=== PATIENT | male | born 1980 | race Caucasian/White ===

== ENCOUNTER 2017-04-15 12:36 | Emergency (ER) | payer SELFPAY ==
[~2017-04-15] VITALS: Ht 180.3 cm; Wt 95.5 kg
[~2017-04-15 12:36] MED LIST: ALBU8HFA IH; AMLO10TA4 PO; FLUO20CA30 PO; QUET100T PO
[2017-04-15] MEDS ORDERED: LEVE250T55 PO (12:48)
[2017-04-15] MEDS ORDERED: SODIUM CHLORIDE 0.9% 1,000 ML IV ONE (13:15)
[2017-04-15] MEDS ORDERED: MAG HYDROX/AL HYDROX/SIMETH ES 30 ML SUSPENSION UDCUP PO ONE (13:30)
[2017-04-15] MEDS ORDERED: FAMOTIDINE 20 MG TABLET PO ONE (13:30)
[2017-04-15 13:48] LABS: BASOPHILS # (AUTO) 0.07 K/uL (0.00-0.20); BASOPHILS % (AUTO) 1.6 % (0.0-2.0); EOSINOPHILS # (AUTO) 0.22 K/uL (0.00-0.70); EOSINOPHILS % (AUTO) 5.15 % (1.0-6.0); HEMATOCRIT 39.1 % (41-53); HEMOGLOBIN 13.6 g/dL (13.5-17.5); LYMPHOCYTES # (AUTO) 1.4 K/uL (1.0-4.8); LYMPHOCYTES % (AUTO) 31.3 % (22.0-44.0); MEAN CORPUSCULAR HGB CONC 34.8 G/dL (31.0-37.0); MEAN CORPUSCULAR VOLUME 92 fL (80-100); MONOCYTES # (AUTO) 0.4 K/uL (0.1-1.0); MONOCYTES % (AUTO) 8.8 % (2.0-9.0); NEUTROPHILS # (AUTO) 2.3 K/uL (1.8-7.7); NEUTROPHILS % (AUTO) 53.1 % (40.0-70.0); PLATELET COUNT (AUTO) 186 K/uL (150-450); RED BLOOD CELL COUNT(AUTO) 4.25 MIL/uL (4.50-5.90); RED CELL DISTRIBUTION WIDTH 14.7 % (11.5-14.5); WHITE BLOOD COUNT (AUTO) 4.3 K/uL (4.5-11.0)
[2017-04-15 13:55] VITALS: BP 113/60
[2017-04-15 13:57] LABS: ANION GAP 10 mmol/L (8-16); CALCIUM, TOTAL 8.7 mg/dL (8.8-10.5); CARBON DIOXIDE 27 mmol/L (22-29); CHLORIDE 108 mmol/L (98-107); CREATININE 0.93 mg/dL (0.60-1.30); GLOMERULAR FILTR. RATE CALC > 60 mL/min (>60); POTASSIUM 3.9 mmol/L (3.5-5.1); SODIUM SERUM 145 mmol/L (136-145); UREA NITROGEN, BLOOD 8 mg/dL (7-18)
[2017-04-15 14:04] LABS: ALANINE AMINOTRANSFERASE 23 U/L (12-78); ALBUMIN 3.7 g/dL (3.4-5.0); ASPARTATE AMINOTRANSFERASE 19 U/L (15-37); BILIRUBIN,TOTAL 0.8 mg/dL (0.1-1.0); TOTAL PROTEIN, SERUM 6.6 g/dL (6.4-8.2)
[2017-04-20] MEDS ORDERED: NAPR250T2 PO (20:13)
== END 2017-04-15 14:48 | disposition home or self-care (01) ==
LOC: EMS 12:38
DX: K29.20 Alcoholic gastritis without bleeding (principal); J45.909 Unspecified asthma, uncomplicated
CPT/HCPCS: 36415; 80053; 83690; 85025; 96360; 96361; 99285; G0480; J7030

== ENCOUNTER 2017-04-20 19:55 | Emergency (ER) | payer MEDICAID ==
[~2017-04-20] VITALS: Ht 180.3 cm; Wt 100.0 kg
[~2017-04-20 19:55] MED LIST changes: +LEVE250T55 PO
[2017-04-20] MEDS ORDERED: NAPR-923 PO (20:13)
[2017-04-20] MEDS ORDERED: LEVE250T55 PO (20:14)
[2017-04-20] MEDS ORDERED: SODIUM CHLORIDE 0.9% 1,000 ML IV ONE (20:15)
[2017-04-20] MEDS ORDERED: NAPR-58 PO (20:19)
[2017-04-20 20:31] LABS: BASOPHILS % (AUTO) 0.8 % (0.0-2.0); EOSINOPHILS % (AUTO) 1.4 % (1.0-6.0); HEMATOCRIT 48.6 % (41-53); HEMOGLOBIN 16.6 g/dL (13.5-17.5); LYMPHOCYTES # (AUTO) 1.4 K/uL (1.0-4.8); LYMPHOCYTES % (AUTO) 17.5 % (22.0-44.0); MEAN CORPUSCULAR HEMOGLOBIN 32.2 pg (26.0-34.0); MEAN CORPUSCULAR HGB CONC 34.2 G/dL (31.0-37.0); MEAN CORPUSCULAR VOLUME 94 fL (80-100); MONOCYTES # (AUTO) 0.6 K/uL (0.1-1.0); NEUTROPHILS # (AUTO) 5.8 K/uL (1.8-7.7); NEUTROPHILS % (AUTO) 73.3 % (40.0-70.0); PLATELET COUNT (AUTO) 241 K/uL (150-450); RED BLOOD CELL COUNT(AUTO) 5.16 MIL/uL (4.50-5.90); RED CELL DISTRIBUTION WIDTH 14.3 % (11.5-14.5); WHITE BLOOD COUNT (AUTO) 7.9 K/uL (4.5-11.0)
[2017-04-20 20:43] LABS: ANION GAP 13 mmol/L (8-16); CALCIUM, TOTAL 9.2 mg/dL (8.8-10.5); CARBON DIOXIDE 27 mmol/L (22-29); CHLORIDE 102 mmol/L (98-107); CREATININE 1.21 mg/dL (0.60-1.30); GLOMERULAR FILTR. RATE CALC > 60 mL/min (>60); POTASSIUM 4.5 mmol/L (3.5-5.1); SODIUM SERUM 142 mmol/L (136-145); UREA NITROGEN, BLOOD 14 mg/dL (7-18)
[2017-04-20] MEDS ORDERED: LORazepam 2 MG/ML VIAL IVP ONE (20:45)
[2017-04-20] MEDS ORDERED: BENZTROPINE MESYLATE 1 MG/ML 2 ML AMP IVP ONE (20:45)
[2017-04-20 20:49] LABS: ALANINE AMINOTRANSFERASE 36 U/L (12-78); ALBUMIN 4.7 g/dL (3.4-5.0); ASPARTATE AMINOTRANSFERASE 33 U/L (15-37); BILIRUBIN,TOTAL 0.5 mg/dL (0.1-1.0); TOTAL PROTEIN, SERUM 8.4 g/dL (6.4-8.2)
[2017-04-20 20:50] LABS: ACETAMINOPHEN < 2 mcg/mL (10-30)
[2017-04-20 21:13] LABS: SALICYLATE 2.7 mg/dL (2.8-20.0)
[2017-04-20 23:41] LABS: AMMONIA 25 umol/L (11-32)
[2017-04-20 23:51] LABS: TROPONIN I < 0.02 ng/mL (0.00-0.05)
[2017-04-21 00:04] LABS: VALPROIC ACID < 3 mcg/mL (50-100)
[2017-04-21] MEDS ORDERED: ONDANSETRON HCL 4 MG/2 ML VIAL IVP ONE (00:45)
[2017-04-21] MEDS ORDERED: SODIUM CHLORIDE 0.9% 1,000 ML IV ONE ×2 (01:00→01:15)
[2017-04-21 06:12] VITALS: BP 139/93
== END 2017-04-21 06:21 | disposition home or self-care (01) ==
LOC: EMS 19:58
DX: R41.82 Altered mental status, unspecified (principal); J45.909 Unspecified asthma, uncomplicated; K85.90 Acute pancreatitis without necrosis or infection, unspecified
CPT/HCPCS: 36415; 51702; 70450; 80053; 80164; 80307; 82140; 83690; 84484; 85025; 93005; 96361; 96374; 96375; 99285; G0480; G0482; J0515; J2060; J2405; J7030 ×2; G0481

== ENCOUNTER 2017-08-12 07:47 | Emergency (ER) | payer MEDICAID, OTHER ==
[~2017-08-12] VITALS: Ht 180.3 cm; Wt 90.9 kg
[~2017-08-12 07:47] MED LIST changes: +NAPR-58 PO
[2017-08-12] MEDS ORDERED: DIPH25 PO (08:00)
[2017-08-12] MEDS ORDERED: SODIUM CHLORIDE 0.9% 1,000 ML IV ONE (10:15)
[2017-08-12] MEDS ORDERED: KETOROLAC TROMETHAMINE 30 MG/ML VIAL IVP ONE (10:30)
[2017-08-12 10:55] LABS: BASOPHILS % (AUTO) 0.5 % (0.0-2.0); EOSINOPHILS % (AUTO) 1.8 % (1.0-6.0); HEMATOCRIT 42.9 % (41-53); HEMOGLOBIN 14.9 g/dL (13.5-17.5); LYMPHOCYTES # (AUTO) 1.4 K/uL (1.0-4.8); LYMPHOCYTES % (AUTO) 13.7 % (22.0-44.0); MEAN CORPUSCULAR HEMOGLOBIN 32.2 pg (26.0-34.0); MEAN CORPUSCULAR HGB CONC 34.8 G/dL (31.0-37.0); MEAN CORPUSCULAR VOLUME 93 fL (80-100); MONOCYTES # (AUTO) 0.5 K/uL (0.1-1.0); NEUTROPHILS # (AUTO) 8.3 K/uL (1.8-7.7); PLATELET COUNT (AUTO) 305 K/uL (150-450); RED BLOOD CELL COUNT(AUTO) 4.64 MIL/uL (4.50-5.90); RED CELL DISTRIBUTION WIDTH 13.6 % (11.5-14.5)
[2017-08-12 11:25] LABS: ANION GAP 12 mmol/L (8-16); CALCIUM, TOTAL 9.3 mg/dL (8.8-10.5); CARBON DIOXIDE 24 mmol/L (22-29); CHLORIDE 103 mmol/L (98-107); CREATININE 1.01 mg/dL (0.60-1.30); GLOMERULAR FILTR. RATE CALC > 60 mL/min (>60); GLUCOSE,RANDOM 116 mg/dL (70-110); SODIUM SERUM 139 mmol/L (136-145); UREA NITROGEN, BLOOD 8 mg/dL (7-18)
[2017-08-12 11:50] LABS: AMPHET/METH SCREEN,URINE NEGATIVE (NEGATIVE); BARBITURATE SCREEN, URINE NEGATIVE (NEGATIVE); BENZODIAZEPINES SCREEN,URINE NEGATIVE (NEGATIVE); CANNABINOID SCREEN,URINE NEGATIVE (NEGATIVE); COCAINE SCREEN,URINE NEGATIVE (NEGATIVE); METHADONE SCREEN, URINE NEGATIVE (NEGATIVE); OPIATE SCREEN,URINE NEGATIVE (NEGATIVE)
[2017-08-12 11:51] LABS: PHENCYCLIDINE SCREEN,URINE NEGATIVE (NEGATIVE)
[2017-08-12 11:59] LABS: CREATINE KINASE MB 0.6 ng/mL (0-5); CREATINE KINASE, TOTAL 117 U/L (39-308); THYROID STIMULATING HORMONE 1.14 uIU/mL (0.36-3.74)
[2017-08-12] MEDS ORDERED: LORazepam 1 MG TABLET PO ONE (12:30)
[2017-08-12] MEDS ORDERED: OxyCODONE HCL/ACETAMINOPHEN 5-325 MG TABLET PO ONE (13:15)
[2017-08-12] MEDS ORDERED: LevETIRAcetam 500 MG TABLET PO ONE (13:15)
[2017-08-12 13:30] VITALS: BP 125/67
[2017-08-12] MEDS ORDERED: BARIUM SULFATE 0.1% SUSPENSION 450 ML BOTTLE PO ONE (14:15)
== END 2017-08-12 14:12 | disposition home or self-care (01) ==
LOC: EMS 07:49
DX: G40.909 Epilepsy, unspecified, not intractable, without status epilepticus (principal); F41.9 Anxiety disorder, unspecified; J45.909 Unspecified asthma, uncomplicated
CPT/HCPCS: 36415; 80048; 80307; 82550; 82553; 84443; 85025; 96374; 99284; J1885; J7030

== ENCOUNTER 2017-08-13 14:13 | Emergency (ER) | payer OTHER ==
[~2017-08-13] VITALS: Ht 180.3 cm; Wt 90.5 kg
[~2017-08-13 14:13] MED LIST changes: +DIPH25 PO
[2017-08-13 14:42] LABS: GLUCOSE,POINT OF CARE 124 MG/DL (70-110)
[2017-08-13 15:32] LABS: BASOPHILS % (AUTO) 0.7 % (0.0-2.0); EOSINOPHILS % (AUTO) 5.5 % (1.0-6.0); HEMATOCRIT 40.9 % (41-53); HEMOGLOBIN 14.3 g/dL (13.5-17.5); LYMPHOCYTES # (AUTO) 1.9 K/uL (1.0-4.8); LYMPHOCYTES % (AUTO) 21.2 % (22.0-44.0); MEAN CORPUSCULAR HEMOGLOBIN 31.6 pg (26.0-34.0); MEAN CORPUSCULAR HGB CONC 34.8 G/dL (31.0-37.0); MEAN CORPUSCULAR VOLUME 91 fL (80-100); MONOCYTES # (AUTO) 0.6 K/uL (0.1-1.0); MONOCYTES % (AUTO) 6.6 % (2.0-9.0); NEUTROPHILS # (AUTO) 5.8 K/uL (1.8-7.7); PLATELET COUNT (AUTO) 339 K/uL (150-450); RED BLOOD CELL COUNT(AUTO) 4.51 MIL/uL (4.50-5.90); RED CELL DISTRIBUTION WIDTH 13.6 % (11.5-14.5)
[2017-08-13 15:46] LABS: ANION GAP 13 mmol/L (8-16); CALCIUM, TOTAL 9.7 mg/dL (8.8-10.5); CARBON DIOXIDE 26 mmol/L (22-29); CHLORIDE 99 mmol/L (98-107); CREATININE 0.92 mg/dL (0.60-1.30); GLOMERULAR FILTR. RATE CALC > 60 mL/min (>60); GLUCOSE,RANDOM 103 mg/dL (70-110); POTASSIUM 3.4 mmol/L (3.5-5.1); SODIUM SERUM 138 mmol/L (136-145); UREA NITROGEN, BLOOD 6 mg/dL (7-18)
[2017-08-13 15:51] LABS: ALANINE AMINOTRANSFERASE 33 U/L (12-78); ALBUMIN 3.9 g/dL (3.4-5.0); ALKALINE PHOSPHATASE 84 U/L (46-116); ASPARTATE AMINOTRANSFERASE 18 U/L (15-37); BILIRUBIN,TOTAL 0.3 mg/dL (0.1-1.0); TOTAL PROTEIN, SERUM 7.9 g/dL (6.4-8.2)
[2017-08-13] MEDS ORDERED: PHENYTOIN SODIUM 1,000 MG in SODIUM CHLORIDE 0.9% 150 ML IV ONE (16:45)
[2017-08-13] MEDS ORDERED: LORazepam 1 MG TABLET PO ONE (16:45)
[2017-08-13] MEDS ORDERED: ONDANSETRON HCL 4 MG/2 ML VIAL IVP ONE (19:00)
[2017-08-13] MEDS ORDERED: SODIUM CHLORIDE 0.9% 1,000 ML IV ONE (19:00)
[2017-08-13] MEDS ORDERED: IBUPROFEN 600 MG TABLET PO ONE (19:30)
[2017-08-13 19:36] VITALS: BP 131/85
== END 2017-08-13 19:38 | disposition home or self-care (01) ==
LOC: EMS 14:17
DX: G40.909 Epilepsy, unspecified, not intractable, without status epilepticus (principal); J45.909 Unspecified asthma, uncomplicated; F17.200 Nicotine dependence, unspecified, uncomplicated
CPT/HCPCS: 36415; 80053; 82962; 85025; 96361; 96365; 96375; 99284; 99406; G0480; G0482; J1165; J2405; J7030; J7050

== ENCOUNTER 2017-08-22 19:06 | Emergency (ER) | payer OTHER ==
[~2017-08-22] VITALS: Ht 180.3 cm; Wt 95.5 kg
[~2017-08-22 19:06] MED LIST changes: -NAPR-58 PO
[2017-08-22] MEDS ORDERED: ACET1TAB12 PO (19:29)
[2017-08-22 20:13] LABS: BASOPHILS # (AUTO) 0.04 K/uL (0.00-0.20); BASOPHILS % (AUTO) 0.6 % (0.0-2.0); EOSINOPHILS # (AUTO) 0.35 K/uL (0.00-0.70); EOSINOPHILS % (AUTO) 5.29 % (1.0-6.0); HEMATOCRIT 42.3 % (41-53); HEMOGLOBIN 14.1 g/dL (13.5-17.5); LYMPHOCYTES # (AUTO) 2.3 K/uL (1.0-4.8); LYMPHOCYTES % (AUTO) 35.3 % (22.0-44.0); MEAN CORPUSCULAR HEMOGLOBIN 31.4 pg (26.0-34.0); MEAN CORPUSCULAR HGB CONC 33.3 G/dL (31.0-37.0); MEAN CORPUSCULAR VOLUME 94 fL (80-100); MONOCYTES # (AUTO) 0.7 K/uL (0.1-1.0); MONOCYTES % (AUTO) 10.3 % (2.0-9.0); NEUTROPHILS # (AUTO) 3.2 K/uL (1.8-7.7); NEUTROPHILS % (AUTO) 48.5 % (40.0-70.0); PLATELET COUNT (AUTO) 281 K/uL (150-450); RED BLOOD CELL COUNT(AUTO) 4.48 MIL/uL (4.50-5.90); RED CELL DISTRIBUTION WIDTH 14.1 % (11.5-14.5)
[2017-08-22 20:23] LABS: ANION GAP 7 mmol/L (8-16); CALCIUM, TOTAL 8.9 mg/dL (8.8-10.5); CARBON DIOXIDE 27 mmol/L (22-29); CHLORIDE 103 mmol/L (98-107); CREATININE 1.23 mg/dL (0.60-1.30); GLOMERULAR FILTR. RATE CALC > 60 mL/min (>60); GLUCOSE,RANDOM 103 mg/dL (70-110); POTASSIUM 3.8 mmol/L (3.5-5.1); SODIUM SERUM 137 mmol/L (136-145); UREA NITROGEN, BLOOD 12 mg/dL (7-18)
[2017-08-22 20:29] LABS: ALANINE AMINOTRANSFERASE 38 U/L (12-78); ALBUMIN 3.6 g/dL (3.4-5.0); ALKALINE PHOSPHATASE 79 U/L (46-116); ASPARTATE AMINOTRANSFERASE 23 U/L (15-37); BILIRUBIN,TOTAL 0.2 mg/dL (0.1-1.0); LIPASE 108 U/L (73-393); TOTAL PROTEIN, SERUM 7.3 g/dL (6.4-8.2)
[2017-08-22] MEDS ORDERED: LORazepam 2 MG TABLET PO ONE (21:30)
[2017-08-22] MEDS ORDERED: ACETAMINOPHEN/CODEINE 300-30 MG TABLET PO ONE (21:30)
[2017-08-22] MEDS ORDERED: LevETIRAcetam 500 MG TABLET PO ONE (21:30)
[2017-08-22] MEDS ORDERED: CEPHALEXIN MONOHYDRATE 500 MG CAPSULE PO ONE (21:45)
[2017-08-22 21:48] LABS: APPEARANCE,URINE CLEAR (CLEAR); BILIRUBIN,URINE NEGATIVE (NEGATIVE); GLUCOSE, URINE (UA) NEGATIVE (NEGATIVE); KETONES,URINE NEGATIVE (NEGATIVE); LEUKOCYTE ESTERASE ,URINE NEGATIVE (NEGATIVE); NITRATE,URINE NEGATIVE (NEGATIVE); OCCULT BLOOD,URINE NEGATIVE (NEGATIVE); PROTEIN,URINE NEGATIVE (NEGATIVE); UROBILINOGEN,URINE 0.2 mg/dL (<=1.0)
[2017-08-22 21:55] LABS: BACTERIA,URINE Rare /HPF (None Seen); RBC,URINE None Seen /HPF (0-2); SQUAMOUS EPITHELIAL CELL,UR Rare /LPF (None Seen); WBC,URINE 0-2 /HPF (0-5)
[2017-08-22] MEDS ORDERED: ONDANSETRON HCL 4 MG TABLET PO ONE (22:30)
[2017-08-22] MEDS ORDERED: QUEtiapine FUMARATE 100 MG TABLET PO ONE (22:30)
[2017-08-22 22:37] VITALS: BP 138/87
== END 2017-08-22 22:38 | disposition home or self-care (01) ==
LOC: EMS 19:07
DX: R10.13 Epigastric pain (principal); M25.512 Pain in left shoulder; L03.012 Cellulitis of left finger; G40.909 Epilepsy, unspecified, not intractable, without status epilepticus; F41.9 Anxiety disorder, unspecified; J45.909 Unspecified asthma, uncomplicated; I10 Essential (primary) hypertension; Z79.899 Other long term (current) drug therapy; Z71.6 Tobacco abuse counseling
CPT/HCPCS: 36415; 80053; 81001; 83690; 85025; 99284; 99406; G0480; Q0162

== ENCOUNTER 2017-08-24 16:29 | Emergency (ER) | payer OTHER ==
[~2017-08-24] VITALS: Ht 180.3 cm; Wt 95.0 kg
[~2017-08-24 16:29] MED LIST changes: +ACET1TAB12 PO; -AMLO10TA4 PO; -DIPH25 PO
[2017-08-24] MEDS ORDERED: LEVE500T53 PO (17:39)
[2017-08-24] MEDS ORDERED: SODIUM CHLORIDE 0.9% 1,000 ML IV ONE (17:45)
[2017-08-24] MEDS ORDERED: ONDANSETRON HCL 4 MG/2 ML VIAL IVP ONE (17:45)
[2017-08-24] MEDS: KETOROLAC TROMETHAMINE 30 MG/ML VIAL IVP ONE ×2 (17:48→17:50)
[2017-08-24 17:58] LABS: BASOPHILS % (AUTO) 0.7 % (0.0-2.0); EOSINOPHILS % (AUTO) 8.6 % (1.0-6.0); HEMATOCRIT 41.6 % (41-53); HEMOGLOBIN 14.3 g/dL (13.5-17.5); LYMPHOCYTES # (AUTO) 1.9 K/uL (1.0-4.8); LYMPHOCYTES % (AUTO) 38.5 % (22.0-44.0); MEAN CORPUSCULAR HEMOGLOBIN 31.8 pg (26.0-34.0); MEAN CORPUSCULAR HGB CONC 34.3 G/dL (31.0-37.0); MEAN CORPUSCULAR VOLUME 93 fL (80-100); MONOCYTES # (AUTO) 0.4 K/uL (0.1-1.0); MONOCYTES % (AUTO) 8.1 % (2.0-9.0); NEUTROPHILS # (AUTO) 2.2 K/uL (1.8-7.7); NEUTROPHILS % (AUTO) 44.1 % (40.0-70.0); PLATELET COUNT (AUTO) 268 K/uL (150-450); RED CELL DISTRIBUTION WIDTH 13.9 % (11.5-14.5)
[2017-08-24 18:05] LABS: ANION GAP 9 mmol/L (8-16); CALCIUM, TOTAL 8.9 mg/dL (8.8-10.5); CARBON DIOXIDE 27 mmol/L (22-29); CHLORIDE 102 mmol/L (98-107); CREATININE 0.92 mg/dL (0.60-1.30); GLOMERULAR FILTR. RATE CALC > 60 mL/min (>60); GLUCOSE,RANDOM 102 mg/dL (70-110); POTASSIUM 3.9 mmol/L (3.5-5.1); SODIUM SERUM 138 mmol/L (136-145); UREA NITROGEN, BLOOD 11 mg/dL (7-18)
[2017-08-24 18:11] LABS: ALANINE AMINOTRANSFERASE 36 U/L (12-78); ALBUMIN 3.4 g/dL (3.4-5.0); ALKALINE PHOSPHATASE 75 U/L (46-116); ASPARTATE AMINOTRANSFERASE 23 U/L (15-37); BILIRUBIN,TOTAL 0.2 mg/dL (0.1-1.0); LIPASE 94 U/L (73-393); TOTAL PROTEIN, SERUM 6.8 g/dL (6.4-8.2)
[2017-08-24] MEDS ORDERED: DONNATAL/LIDOCAINE/MAALOX 55 ML BOTTLE PO ONE (18:30)
[2017-08-24 19:05] VITALS: BP 116/94
== END 2017-08-24 19:26 | disposition home or self-care (01) ==
LOC: EMS 16:32
DX: R10.13 Epigastric pain (principal); R11.2 Nausea with vomiting, unspecified; J45.909 Unspecified asthma, uncomplicated; F12.90 Cannabis use, unspecified, uncomplicated
CPT/HCPCS: 36415; 80053; 83690; 85025; 96361; 96374; 99284; G0480; J2405; J7030; Z7610; J1885

== ENCOUNTER 2017-08-27 08:49 | Emergency (ER) | payer OTHER ==
[~2017-08-27] VITALS: Ht 180.3 cm; Wt 95.5 kg
[~2017-08-27 08:49] MED LIST changes: -LEVE250T55 PO; +LEVE500T53 PO
[2017-08-27] MEDS ORDERED: LEVE500T53 PO (09:28)
[2017-08-27] MEDS ORDERED: QUET300T2 PO (09:28)
[2017-08-27] MEDS ORDERED: LORazepam 1 MG TABLET PO ONE (10:30)
[2017-08-27] MEDS ORDERED: KETOROLAC TROMETHAMINE 30 MG/ML VIAL IVP ONE (10:30)
[2017-08-27] MEDS ORDERED: LevETIRAcetam 500 MG TABLET PO ONE (10:45)
[2017-08-27 10:48] LABS: BASOPHILS % (AUTO) 0.3 % (0.0-2.0); EOSINOPHILS % (AUTO) 2.5 % (1.0-6.0); HEMOGLOBIN 15.9 g/dL (13.5-17.5); LYMPHOCYTES # (AUTO) 1.3 K/uL (1.0-4.8); LYMPHOCYTES % (AUTO) 14.7 % (22.0-44.0); MEAN CORPUSCULAR HEMOGLOBIN 31.8 pg (26.0-34.0); MEAN CORPUSCULAR HGB CONC 33.9 G/dL (31.0-37.0); MEAN CORPUSCULAR VOLUME 94 fL (80-100); MONOCYTES # (AUTO) 0.5 K/uL (0.1-1.0); MONOCYTES % (AUTO) 5.8 % (2.0-9.0); NEUTROPHILS # (AUTO) 6.7 K/uL (1.8-7.7); NEUTROPHILS % (AUTO) 76.7 % (40.0-70.0); PLATELET COUNT (AUTO) 273 K/uL (150-450); RED BLOOD CELL COUNT(AUTO) 5.02 MIL/uL (4.50-5.90); RED CELL DISTRIBUTION WIDTH 13.8 % (11.5-14.5)
[2017-08-27 10:58] LABS: ANION GAP 7 mmol/L (8-16); CALCIUM, TOTAL 9.4 mg/dL (8.8-10.5); CARBON DIOXIDE 29 mmol/L (22-29); CHLORIDE 101 mmol/L (98-107); CREATININE 0.95 mg/dL (0.60-1.30); GLOMERULAR FILTR. RATE CALC > 60 mL/min (>60); GLUCOSE,RANDOM 110 mg/dL (70-110); SODIUM SERUM 137 mmol/L (136-145); UREA NITROGEN, BLOOD 13 mg/dL (7-18)
[2017-08-27 11:04] LABS: ALANINE AMINOTRANSFERASE 38 U/L (12-78); ALBUMIN 3.8 g/dL (3.4-5.0); ALKALINE PHOSPHATASE 82 U/L (46-116); ASPARTATE AMINOTRANSFERASE 21 U/L (15-37); BILIRUBIN,TOTAL 0.3 mg/dL (0.1-1.0); TOTAL PROTEIN, SERUM 7.8 g/dL (6.4-8.2)
[2017-08-27] MEDS ORDERED: QUEtiapine FUMARATE 100 MG TABLET PO ONE (11:15)
[2017-08-27] MEDS ORDERED: TraMADol HCL 50 MG TABLET PO ONE (13:45)
[2017-08-27 13:48] LABS: AMPHET/METH SCREEN,URINE NEGATIVE (NEGATIVE); BARBITURATE SCREEN, URINE NEGATIVE (NEGATIVE); BENZODIAZEPINES SCREEN,URINE NEGATIVE (NEGATIVE); CANNABINOID SCREEN,URINE NEGATIVE (NEGATIVE); COCAINE SCREEN,URINE NEGATIVE (NEGATIVE); METHADONE SCREEN, URINE NEGATIVE (NEGATIVE); OPIATE SCREEN,URINE NEGATIVE (NEGATIVE); PHENCYCLIDINE SCREEN,URINE NEGATIVE (NEGATIVE)
[2017-08-27 15:04] VITALS: BP 144/91
== END 2017-08-27 15:09 | disposition home or self-care (01) ==
LOC: EMS 08:51
DX: G40.909 Epilepsy, unspecified, not intractable, without status epilepticus (principal); M25.512 Pain in left shoulder; G89.29 Other chronic pain; F41.9 Anxiety disorder, unspecified; J45.909 Unspecified asthma, uncomplicated
CPT/HCPCS: 36415; 73030; 80053; 80307; 85025; 96374; 99285; G0480; J1885

== ENCOUNTER 2017-09-09 17:46 | Emergency (ER) | payer OTHER ==
[~2017-09-09] VITALS: Ht 180.3 cm; Wt 95.5 kg
[~2017-09-09 17:46] MED LIST changes: -QUET100T PO; +QUET300T2 PO
[2017-09-09] MEDS ORDERED: KETOROLAC TROMETHAMINE 60 MG/2 ML VIAL IM ONE (20:30)
[2017-09-09 21:35] VITALS: BP 112/75
== END 2017-09-09 22:01 | disposition home or self-care (01) ==
LOC: EMS 17:51
DX: S40.012A Contusion of left shoulder, initial encounter (principal); J45.909 Unspecified asthma, uncomplicated; K85.90 Acute pancreatitis without necrosis or infection, unspecified; F41.9 Anxiety disorder, unspecified; Z98.890 Other specified postprocedural states; Z79.899 Other long term (current) drug therapy; X58.XXXA Exposure to other specified factors, initial encounter; Y93.89 Activity, other specified; Y92.89 Other specified places as the place of occurrence of the external cause; Y99.8 Other external cause status
CPT/HCPCS: 73030; 96372; 99284; J1885

== ENCOUNTER 2017-09-25 09:48 | Emergency (ER) | payer MEDICAID, OTHER ==
[~2017-09-25] VITALS: Ht 180.3 cm; Wt 95.5 kg
[~2017-09-25 09:48] MED LIST changes: -ACET1TAB12 PO; -ALBU8HFA IH; +DIPH25 PO; -FLUO20CA30 PO; +GABA-533 PO; -LEVE500T53 PO; +QUET200T PO; -QUET300T2 PO
[2017-09-25] MEDS ORDERED: LEVE750T10 PO (09:54)
[2017-09-25] MEDS ORDERED: SERT50TA12 PO (09:54)
[2017-09-25] MEDS ORDERED: OMEG-50 PO (09:54)
[2017-09-25] MEDS ORDERED: SODIUM CHLORIDE 0.9% 1,000 ML IV ONE (10:30)
[2017-09-25] MEDS ORDERED: PANTOPRAZOLE SODIUM 40 MG/VIAL IVP ONE (10:30)
[2017-09-25] MEDS ORDERED: ONDANSETRON HCL 4 MG/2 ML VIAL IVP ONE (10:30)
[2017-09-25] MEDS ORDERED: MORPHINE SULFATE 4 MG/ML SYRINGE IVP ONE (10:30)
[2017-09-25 10:47] LABS: APPEARANCE,URINE CLEAR (CLEAR); BILIRUBIN,URINE NEGATIVE (NEGATIVE); GLUCOSE, URINE (UA) NEGATIVE (NEGATIVE); KETONES,URINE NEGATIVE (NEGATIVE); LEUKOCYTE ESTERASE ,URINE NEGATIVE (NEGATIVE); NITRATE,URINE NEGATIVE (NEGATIVE); OCCULT BLOOD,URINE NEGATIVE (NEGATIVE); PH,URINE 6.5 (5.0-8.0); PROTEIN,URINE NEGATIVE (NEGATIVE); UROBILINOGEN,URINE 0.2 mg/dL (<=1.0)
[2017-09-25 10:57] LABS: BASOPHILS % (AUTO) 0.5 % (0.0-2.0); HEMATOCRIT 45.4 % (41-53); HEMOGLOBIN 15.8 g/dL (13.5-17.5); LYMPHOCYTES # (AUTO) 1.8 K/uL (1.0-4.8); LYMPHOCYTES % (AUTO) 25.8 % (22.0-44.0); MEAN CORPUSCULAR HEMOGLOBIN 31.7 pg (26.0-34.0); MEAN CORPUSCULAR HGB CONC 34.7 G/dL (31.0-37.0); MEAN CORPUSCULAR VOLUME 91 fL (80-100); MONOCYTES # (AUTO) 0.7 K/uL (0.1-1.0); MONOCYTES % (AUTO) 9.8 % (2.0-9.0); NEUTROPHILS # (AUTO) 4.1 K/uL (1.8-7.7); NEUTROPHILS % (AUTO) 57.9 % (40.0-70.0); PLATELET COUNT (AUTO) 228 K/uL (150-450); RED BLOOD CELL COUNT(AUTO) 4.97 MIL/uL (4.50-5.90); RED CELL DISTRIBUTION WIDTH 13.3 % (11.5-14.5)
[2017-09-25 11:13] LABS: ANION GAP 7 mmol/L (8-16); CALCIUM, TOTAL 9.1 mg/dL (8.8-10.5); CARBON DIOXIDE 31 mmol/L (22-29); CHLORIDE 104 mmol/L (98-107); GLOMERULAR FILTR. RATE CALC > 60 mL/min (>60); GLUCOSE,RANDOM 81 mg/dL (70-110); POTASSIUM 4.2 mmol/L (3.5-5.1); SODIUM SERUM 142 mmol/L (136-145); UREA NITROGEN, BLOOD 20 mg/dL (7-18)
[2017-09-25 11:18] LABS: ALANINE AMINOTRANSFERASE 48 U/L (12-78); ALBUMIN 4.2 g/dL (3.4-5.0); ALKALINE PHOSPHATASE 77 U/L (46-116); ASPARTATE AMINOTRANSFERASE 24 U/L (15-37); BILIRUBIN,TOTAL 0.2 mg/dL (0.1-1.0); LIPASE 163 U/L (73-393); TOTAL PROTEIN, SERUM 7.9 g/dL (6.4-8.2)
[2017-09-25 11:23] VITALS: BP 133/86
== END 2017-09-25 12:09 | disposition home or self-care (01) ==
LOC: EMS 09:49
DX: K29.70 Gastritis, unspecified, without bleeding (principal); K29.90 Gastroduodenitis, unspecified, without bleeding; G40.909 Epilepsy, unspecified, not intractable, without status epilepticus; F41.9 Anxiety disorder, unspecified; M25.512 Pain in left shoulder; J45.909 Unspecified asthma, uncomplicated
CPT/HCPCS: 36415; 73030; 80053; 81003; 83690; 85025; 96361; 96374; 96375; 99285; C9113; J2270; J2405; J7030

== ENCOUNTER 2018-04-06 15:02 | Emergency (ER) | payer MEDICAID ==
[~2018-04-06 15:02] MED LIST changes: +LEVE750T10 PO; +LISI-661 PO; +OMEG-135 PO; +OMEP20 PO; +SERT100T12 PO; +VITAD1000 PO
== END 2018-04-06 15:12 | disposition left against medical advice (07) ==
LOC: EMS 15:03
DX: F41.9 Anxiety disorder, unspecified (principal); Z53.21 Procedure and treatment not carried out due to patient leaving prior to being seen by health care provider

== ENCOUNTER 2018-04-06 15:31 | Inpatient (IN) | payer MEDICAID, OTHER ==
[~2018-04-06] VITALS: Ht 180.3 cm; Wt 101.1 kg
[2018-04-06] MEDS ORDERED: LORazepam 2 MG TABLET PO ONE (18:45)
[2018-04-06 18:54] LABS: APPEARANCE,URINE CLEAR (CLEAR); BILIRUBIN,URINE NEGATIVE (NEGATIVE); GLUCOSE, URINE (UA) NEGATIVE (NEGATIVE); KETONES,URINE NEGATIVE (NEGATIVE); LEUKOCYTE ESTERASE ,URINE NEGATIVE (NEGATIVE); NITRATE,URINE NEGATIVE (NEGATIVE); OCCULT BLOOD,URINE NEGATIVE (NEGATIVE); PROTEIN,URINE NEGATIVE (NEGATIVE); UROBILINOGEN,URINE 0.2 mg/dL (<=1.0)
[2018-04-06 19:00] LABS: AMPHET/METH SCREEN,URINE NEGATIVE (NEGATIVE); BARBITURATE SCREEN, URINE NEGATIVE (NEGATIVE); BENZODIAZEPINES SCREEN,URINE NEGATIVE (NEGATIVE); CANNABINOID SCREEN,URINE NEGATIVE (NEGATIVE); COCAINE SCREEN,URINE NEGATIVE (NEGATIVE); METHADONE SCREEN, URINE NEGATIVE (NEGATIVE); OPIATE SCREEN,URINE NEGATIVE (NEGATIVE)
[2018-04-06 19:01] LABS: PHENCYCLIDINE SCREEN,URINE NEGATIVE (NEGATIVE)
[2018-04-06 19:01] LABS: BASOPHILS % (AUTO) 0.3 % (0.0-2.0); EOSINOPHILS % (AUTO) 0.1 % (1.0-6.0); HEMATOCRIT 45.5 % (41-53); HEMOGLOBIN 15.7 g/dL (13.5-17.5); LYMPHOCYTES # (AUTO) 1.6 K/uL (1.0-4.8); LYMPHOCYTES % (AUTO) 17.2 % (22.0-44.0); MEAN CORPUSCULAR HEMOGLOBIN 31.1 pg (26.0-34.0); MEAN CORPUSCULAR HGB CONC 34.5 G/dL (31.0-37.0); MEAN CORPUSCULAR VOLUME 90 fL (80-100); MONOCYTES # (AUTO) 0.6 K/uL (0.1-1.0); MONOCYTES % (AUTO) 6.1 % (2.0-9.0); NEUTROPHILS # (AUTO) 7.2 K/uL (1.8-7.7); NEUTROPHILS % (AUTO) 76.3 % (40.0-70.0); PLATELET COUNT (AUTO) 227 K/uL (150-450); RED BLOOD CELL COUNT(AUTO) 5.04 MIL/uL (4.50-5.90); RED CELL DISTRIBUTION WIDTH 13.8 % (11.5-14.5)
[2018-04-06 19:14] LABS: ANION GAP 13 mmol/L (8-16); CALCIUM, TOTAL 10.3 mg/dL (8.8-10.5); CARBON DIOXIDE 25 mmol/L (22-29); CHLORIDE 103 mmol/L (98-107); GLOMERULAR FILTR. RATE CALC > 60 mL/min (>60); GLUCOSE,RANDOM 103 mg/dL (70-110); SODIUM SERUM 141 mmol/L (136-145); UREA NITROGEN, BLOOD 13 mg/dL (7-18)
[2018-04-06 19:33] LABS: B-TYPE NATRIURETIC PEPTIDE 7 pg/mL (0-100)
[2018-04-06 19:37] LABS: ALANINE AMINOTRANSFERASE 29 U/L (12-78); ALBUMIN 4.8 g/dL (3.4-5.0); ALKALINE PHOSPHATASE 75 U/L (46-116); ASPARTATE AMINOTRANSFERASE 19 U/L (15-37); BILIRUBIN,TOTAL 0.3 mg/dL (0.1-1.0); CREATINE KINASE MB 0.6 ng/mL (0-5); CREATINE KINASE, TOTAL 195 U/L (39-308); TOTAL PROTEIN, SERUM 8.2 g/dL (6.4-8.2)
[2018-04-06 19:46] LABS: PROTHROMBIN TIME 10.8 SEC (9.4-11.6)
[2018-04-06] MEDS ORDERED: SODIUM CHLORIDE 0.9% 1,000 ML IV ONE ×2 (20:15→23:45)
[2018-04-06] MEDS ORDERED: QUEtiapine FUMARATE 100 MG TABLET PO ONE (20:15)
[2018-04-06] MEDS ORDERED: DiphenhydrAMINE HCL 50 MG/ML VIAL IVP ONE (21:30)
[2018-04-06] MEDS ORDERED: 0.9% SODIUM CHLORIDE 10 ML SYRINGE IVP PRN (22:30)
[2018-04-06] MEDS ORDERED: ONDANSETRON HCL 4 MG/2 ML VIAL IVP PRN ×2 (22:30→23:45)
[2018-04-06] MEDS ORDERED: LORazepam 2 MG/ML VIAL IVP PRN ×2 (22:30→23:45)
[2018-04-06] MEDS ORDERED: ACETAMINOPHEN 325 MG TABLET PO PRN ×2 (22:30→23:45)
[2018-04-06] MEDS ORDERED: BISACODYL 10 MG RECTAL RECTAL SUPPOSITORY PR PRN (23:45)
[2018-04-06] MEDS ORDERED: MAGNESIUM HYDROXIDE SUSPENSION 30 ML UDCUP PO PRN (23:45)
[2018-04-06] MEDS ORDERED: ZOLPIDEM TARTRATE 5 MG TABLET PO PRN (23:45)
[2018-04-07] MEDS: HEPARIN SODIUM,PORCINE 5,000 UNITS/ML VIAL SQ SCH ×3 (00:05→15:32)
[2018-04-07] MEDS: HYDROCODONE/ACETAMINOPHEN 5-325 MG TABLET PO PRN ×2 (00:38→12:03)
[2018-04-07 08:49] LABS: BASOPHILS % (AUTO) 0.7 % (0.0-2.0); EOSINOPHILS % (AUTO) 3.8 % (1.0-6.0); HEMATOCRIT 42.3 % (41-53); HEMOGLOBIN 14.5 g/dL (13.5-17.5); LYMPHOCYTES # (AUTO) 1.5 K/uL (1.0-4.8); LYMPHOCYTES % (AUTO) 26.2 % (22.0-44.0); MEAN CORPUSCULAR HEMOGLOBIN 31.5 pg (26.0-34.0); MEAN CORPUSCULAR HGB CONC 34.3 G/dL (31.0-37.0); MEAN CORPUSCULAR VOLUME 92 fL (80-100); MONOCYTES # (AUTO) 0.5 K/uL (0.1-1.0); MONOCYTES % (AUTO) 8.1 % (2.0-9.0); NEUTROPHILS # (AUTO) 3.6 K/uL (1.8-7.7); NEUTROPHILS % (AUTO) 61.2 % (40.0-70.0); PLATELET COUNT (AUTO) 203 K/uL (150-450); RED CELL DISTRIBUTION WIDTH 14.1 % (11.5-14.5)
[2018-04-07] MEDS: DOCUSATE SODIUM 100 MG CAPSULE PO SCH ×2 (09:00→21:01)
[2018-04-07] MEDS: GABAPENTIN 400 MG CAPSULE PO SCH ×3 (09:01→21:02)
[2018-04-07] MEDS: LevETIRAcetam 500 MG TABLET PO SCH ×2 (09:01→21:01)
[2018-04-07] MEDS: MORPHINE SULFATE 2 MG/ML SYRINGE IVP PRN ×2 (09:02→16:15)
[2018-04-07] MEDS: PANTOPRAZOLE SODIUM 40 MG DR TABLET PO SCH (09:02)
[2018-04-07 09:06] LABS: ALANINE AMINOTRANSFERASE 27 U/L (12-78); ALKALINE PHOSPHATASE 61 U/L (46-116); ANION GAP 11 mmol/L (8-16); ASPARTATE AMINOTRANSFERASE 18 U/L (15-37); BILIRUBIN,TOTAL 0.4 mg/dL (0.1-1.0); CALCIUM, TOTAL 8.6 mg/dL (8.8-10.5); CARBON DIOXIDE 26 mmol/L (22-29); CHLORIDE 107 mmol/L (98-107); CREATININE 1.16 mg/dL (0.60-1.30); GLOMERULAR FILTR. RATE CALC > 60 mL/min (>60); GLUCOSE,RANDOM 97 mg/dL (70-110); SODIUM SERUM 144 mmol/L (136-145); UREA NITROGEN, BLOOD 11 mg/dL (7-18)
[2018-04-07 09:14] VITALS: BP 124/87
[2018-04-07 11:16] VITALS: BP 136/96
[2018-04-07] MEDS: HydrOXYzine PAMOATE 25 MG CAPSULE PO PRN ×2 (12:02→21:01)
[2018-04-07 15:09] VITALS: BP 127/79
[2018-04-07 15:17] LABS: FREE T4 (FREE THYROXINE) 0.84 ng/dL (0.76-1.46); THYROID STIMULATING HORMONE 1.27 uIU/mL (0.36-3.74)
[2018-04-07 20:13] VITALS: BP 133/78
[2018-04-07] MEDS ORDERED: PNEUMOCOCCAL VACCINE POLYVALENT 0.5 ML VIAL [PPSV23] IM ONE (20:30)
[2018-04-07] MEDS ORDERED: CITALOPRAM HYDROBROMIDE 20 MG TABLET PO SCH (21:00)
[2018-04-07] MEDS ORDERED: QUEtiapine FUMARATE 200 MG TABLET PO SCH (21:00)
[2018-04-08 00:08] VITALS: BP 136/96
[2018-04-08] MEDS: HEPARIN SODIUM,PORCINE 5,000 UNITS/ML VIAL SQ SCH ×3 (01:09→16:03)
[2018-04-08 04:53] VITALS: BP 105/65
[2018-04-08 07:12] VITALS: BP 118/69
[2018-04-08] MEDS: DOCUSATE SODIUM 100 MG CAPSULE PO SCH (08:25)
[2018-04-08] MEDS: PANTOPRAZOLE SODIUM 40 MG DR TABLET PO SCH (08:26)
[2018-04-08] MEDS: GABAPENTIN 400 MG CAPSULE PO SCH ×2 (08:26→16:03)
[2018-04-08] MEDS: LevETIRAcetam 500 MG TABLET PO SCH (08:26)
[2018-04-08] MEDS: MORPHINE SULFATE 2 MG/ML SYRINGE IVP PRN ×2 (08:37→12:42)
[2018-04-08 11:55] VITALS: BP 108/60
[2018-04-08 16:04] VITALS: BP 115/77
[2018-04-08] MEDS ORDERED: HYDR-4031 PO (16:55)
== END 2018-04-08 17:35 | disposition home or self-care (01) | DRG 201 ==
LOC: EMS 15:32 → 5S 04-07 06:00
PROVIDERS: ADMIT Internal Medicine; ATTEND Internal Medicine
DX: R00.0 Tachycardia, unspecified (principal); F25.0 Schizoaffective disorder, bipolar type; F19.939 Other psychoactive substance use, unspecified with withdrawal, unspecified; F10.239 Alcohol dependence with withdrawal, unspecified; M54.30 Sciatica, unspecified side; F99 Mental disorder, not otherwise specified; F41.9 Anxiety disorder, unspecified; J45.909 Unspecified asthma, uncomplicated; Z65.3 Problems related to other legal circumstances; Z91.5 Personal history of self-harm
CPT/HCPCS: 84439; 84443; 93005; 96361; 96374; 99285; G0480; J1200; J1644; J2270; J7030

== ENCOUNTER 2019-02-09 22:08 | Inpatient (IN) | payer MEDICAID, OTHER ==
[~2019-02-09] VITALS: Ht 180.3 cm; Wt 110.1 kg
[~2019-02-09 22:08] MED LIST changes: +HYDR-4031 PO; -LISI-661 PO; -OMEG-135 PO; -OMEP20 PO; +PANT40TA25 PO; -SERT100T12 PO; -VITAD1000 PO
[2019-02-09 23:53] LABS: BASOPHILS % (AUTO) 0.3 % (0.0-2.0); EOSINOPHILS % (AUTO) 0.6 % (1.0-6.0); HEMATOCRIT 42.4 % (41-53); HEMOGLOBIN 14.6 g/dL (13.5-17.5); LYMPHOCYTES # (AUTO) 1.4 K/uL (1.0-4.8); LYMPHOCYTES % (AUTO) 18.3 % (22.0-44.0); MEAN CORPUSCULAR HEMOGLOBIN 31.3 pg (26.0-34.0); MEAN CORPUSCULAR HGB CONC 34.3 G/dL (31.0-37.0); MEAN CORPUSCULAR VOLUME 91 fL (80-100); MONOCYTES % (AUTO) 12.2 % (2.0-9.0); NEUTROPHILS # (AUTO) 5.4 K/uL (1.8-7.7); NEUTROPHILS % (AUTO) 68.6 % (40.0-70.0); PLATELET COUNT (AUTO) 246 K/uL (150-450); RED BLOOD CELL COUNT(AUTO) 4.64 MIL/uL (4.50-5.90); RED CELL DISTRIBUTION WIDTH 13.2 % (11.5-14.5)
[2019-02-09 23:57] LABS: ANION GAP 9 mmol/L (8-16); CALCIUM, TOTAL 9.4 mg/dL (8.8-10.5); CARBON DIOXIDE 27 mmol/L (22-29); CHLORIDE 93 mmol/L (98-107); CREATININE 1.35 mg/dL (0.60-1.30); GLOMERULAR FILTR. RATE CALC 59 mL/min (>60); GLUCOSE,RANDOM 109 mg/dL (70-110); POTASSIUM 4.2 mmol/L (3.5-5.1); SODIUM SERUM 129 mmol/L (136-145); UREA NITROGEN, BLOOD 20 mg/dL (7-18)
[2019-02-10 00:03] LABS: ALANINE AMINOTRANSFERASE 55 U/L (12-78); ALBUMIN 4.2 g/dL (3.4-5.0); ALKALINE PHOSPHATASE 64 U/L (46-116); ASPARTATE AMINOTRANSFERASE 34 U/L (15-37); BILIRUBIN,TOTAL 0.6 mg/dL (0.1-1.0); TOTAL PROTEIN, SERUM 7.9 g/dL (6.4-8.2)
[2019-02-10] MEDS ORDERED: QUEtiapine FUMARATE 100 MG TABLET PO ONE (01:00)
[2019-02-10] MEDS ORDERED: GABAPENTIN 300 MG CAPSULE PO ONE (01:00)
[2019-02-10] MEDS ORDERED: LevETIRAcetam 500 MG TABLET PO ONE (01:00)
[2019-02-10 05:51] VITALS: BP 135/94
[2019-02-10] MEDS ORDERED: PNEUMOCOCCAL VACCINE POLYVALENT 0.5 ML VIAL [PPSV23] IM ONE (06:30)
[2019-02-10 08:55] VITALS: BP 107/64
[2019-02-10] MEDS ORDERED: ALBUTEROL SULFATE HFA 90 MCG/PUFF 8 GM INHALER IH PRN (10:15)
[2019-02-10] MEDS ORDERED: CloNIDine HCL 0.1 MG TABLET PO PRN (10:15)
[2019-02-10] MEDS ORDERED: MAGNESIUM HYDROXIDE SUSPENSION 30 ML UDCUP PO PRN (10:15)
[2019-02-10] MEDS ORDERED: MAG HYDROX/AL HYDROX/SIMETH ES 30 ML SUSPENSION UDCUP PO PRN (10:15)
[2019-02-10] MEDS ORDERED: ONDANSETRON HCL 4 MG TABLET PO PRN (10:15)
[2019-02-10] MEDS ORDERED: IBUPROFEN 400 MG TABLET PO PRN (10:15)
[2019-02-10] MEDS ORDERED: LOPERAMIDE HCL 2 MG CAPSULE PO PRN (10:15)
[2019-02-10] MEDS ORDERED: PETROLATUM,WHITE 28 GM JELLY TP PRN (10:15)
[2019-02-10] MEDS ORDERED: GuaiFENesin/D-METHORPHAN [SUGAR-FREE] 200-20MG/10 ML SYRUP UDCUP PO PRN (10:15)
[2019-02-10] MEDS ORDERED: DOCUSATE SODIUM 100 MG CAPSULE PO PRN (10:15)
[2019-02-10] MEDS ORDERED: ACETAMINOPHEN 325 MG TABLET PO PRN (10:15)
[2019-02-10] MEDS: LORazepam 2 MG TABLET PO PRN ×3 (12:22→22:15)
[2019-02-10] MEDS: GABAPENTIN 400 MG CAPSULE PO SCH ×2 (12:23→17:41)
[2019-02-10 17:00] VITALS: BP 138/68
[2019-02-10] MEDS: LevETIRAcetam 500 MG TABLET PO SCH (17:41)
[2019-02-10] MEDS: QUEtiapine FUMARATE 200 MG TABLET PO SCH (20:36)
[2019-02-11 02:15] VITALS: BP 128/80
[2019-02-11] MEDS: LORazepam 2 MG TABLET PO PRN ×3 (03:53→17:28)
[2019-02-11 06:23] LABS: CHOL/HDL RATIO 3.5 (4.2-7.3)
[2019-02-11 08:52] LABS: AMPHET/METH SCREEN,URINE NEGATIVE (NEGATIVE); BARBITURATE SCREEN, URINE NEGATIVE (NEGATIVE); BENZODIAZEPINES SCREEN,URINE NEGATIVE (NEGATIVE); CANNABINOID SCREEN,URINE NEGATIVE (NEGATIVE); COCAINE SCREEN,URINE NEGATIVE (NEGATIVE); METHADONE SCREEN, URINE NEGATIVE (NEGATIVE); OPIATE SCREEN,URINE NEGATIVE (NEGATIVE); PHENCYCLIDINE SCREEN,URINE NEGATIVE (NEGATIVE)
[2019-02-11] MEDS: GABAPENTIN 400 MG CAPSULE PO SCH ×3 (08:53→17:26)
[2019-02-11] MEDS: LevETIRAcetam 500 MG TABLET PO SCH ×2 (08:53→17:26)
[2019-02-11] MEDS: PANTOPRAZOLE SODIUM 40 MG DR TABLET PO SCH (08:53)
[2019-02-11] MEDS: HALOPERIDOL 5 MG TABLET PO PRN (09:04)
[2019-02-11 16:53] VITALS: BP 125/82
[2019-02-11] MEDS: QUEtiapine FUMARATE 200 MG TABLET PO SCH (21:41)
[2019-02-12 01:01] VITALS: BP 157/88
[2019-02-12] MEDS: LORazepam 2 MG TABLET PO PRN ×3 (01:07→11:44)
[2019-02-12] MEDS: HALOPERIDOL 5 MG TABLET PO PRN (08:18)
[2019-02-12] MEDS: GABAPENTIN 400 MG CAPSULE PO SCH ×3 (08:18→16:42)
[2019-02-12] MEDS: LevETIRAcetam 500 MG TABLET PO SCH ×2 (08:18→16:43)
[2019-02-12] MEDS: PANTOPRAZOLE SODIUM 40 MG DR TABLET PO SCH (08:18)
[2019-02-12 09:17] VITALS: BP 129/86
[2019-02-12 17:03] VITALS: BP 158/95
[2019-02-12] MEDS: QUEtiapine FUMARATE 200 MG TABLET PO SCH (21:28)
[2019-02-13 04:15] VITALS: BP 126/68
[2019-02-13] MEDS: LORazepam 2 MG TABLET PO PRN ×4 (04:38→18:17)
[2019-02-13 09:22] VITALS: BP 125/73
[2019-02-13] MEDS: LevETIRAcetam 500 MG TABLET PO SCH ×2 (10:08→16:45)
[2019-02-13] MEDS: GABAPENTIN 400 MG CAPSULE PO SCH ×3 (10:08→16:46)
[2019-02-13] MEDS: PANTOPRAZOLE SODIUM 40 MG DR TABLET PO SCH (10:08)
[2019-02-13 17:10] VITALS: BP 135/97
[2019-02-13] MEDS: QUEtiapine FUMARATE 200 MG TABLET PO SCH (20:39)
[2019-02-14 05:30] VITALS: BP 157/87
[2019-02-14] MEDS: LORazepam 2 MG TABLET PO PRN ×3 (05:37→15:49)
[2019-02-14 06:37] LABS: ANION GAP 8 mmol/L (8-16); CALCIUM, TOTAL 9.7 mg/dL (8.8-10.5); CARBON DIOXIDE 28 mmol/L (22-29); CHLORIDE 102 mmol/L (98-107); CREATININE 1.05 mg/dL (0.60-1.30); GLOMERULAR FILTR. RATE CALC > 60 mL/min (>60); GLUCOSE,RANDOM 96 mg/dL (70-110); POTASSIUM 4.5 mmol/L (3.5-5.1); SODIUM SERUM 138 mmol/L (136-145); UREA NITROGEN, BLOOD 17 mg/dL (7-18)
[2019-02-14] MEDS: PANTOPRAZOLE SODIUM 40 MG DR TABLET PO SCH (09:45)
[2019-02-14] MEDS: LevETIRAcetam 500 MG TABLET PO SCH ×2 (09:45→16:13)
[2019-02-14] MEDS: GABAPENTIN 400 MG CAPSULE PO SCH ×3 (09:46→16:13)
[2019-02-14] MEDS: HALOPERIDOL 5 MG TABLET PO PRN ×2 (09:57→15:49)
[2019-02-14 12:15] VITALS: BP 126/90
[2019-02-14] MEDS: NICOTINE 14 MG/24 HOUR PATCH TD PRN (16:25)
[2019-02-14 16:49] VITALS: BP 120/94
[2019-02-14] MEDS: QUEtiapine FUMARATE 200 MG TABLET PO SCH (21:55)
[2019-02-15 02:50] VITALS: BP 148/96
[2019-02-15] MEDS: HALOPERIDOL 5 MG TABLET PO PRN ×3 (02:56→16:14)
[2019-02-15] MEDS: LORazepam 2 MG TABLET PO PRN ×3 (02:56→16:14)
[2019-02-15 08:28] VITALS: BP 129/87
[2019-02-15] MEDS: LevETIRAcetam 500 MG TABLET PO SCH ×2 (09:30→16:14)
[2019-02-15] MEDS: GABAPENTIN 400 MG CAPSULE PO SCH ×3 (09:30→16:15)
[2019-02-15] MEDS: PANTOPRAZOLE SODIUM 40 MG DR TABLET PO SCH (09:30)
[2019-02-15] MEDS: NICOTINE 14 MG/24 HOUR PATCH TD PRN (16:15)
[2019-02-15 16:37] VITALS: BP 126/74
[2019-02-15] MEDS: QUEtiapine FUMARATE 200 MG TABLET PO SCH (21:21)
[2019-02-16 00:18] VITALS: BP 117/73
[2019-02-16] MEDS: LORazepam 2 MG TABLET PO PRN ×4 (00:22→15:43)
[2019-02-16] MEDS: ZOLPIDEM TARTRATE 10 MG TABLET PO PRN (00:22)
[2019-02-16] MEDS: HALOPERIDOL 5 MG TABLET PO PRN ×3 (04:34→15:43)
[2019-02-16 04:35] VITALS: BP 121/86
[2019-02-16 09:16] VITALS: BP 155/101
[2019-02-16] MEDS: PANTOPRAZOLE SODIUM 40 MG DR TABLET PO SCH (09:26)
[2019-02-16] MEDS: LevETIRAcetam 500 MG TABLET PO SCH ×2 (09:27→16:13)
[2019-02-16] MEDS: GABAPENTIN 400 MG CAPSULE PO SCH ×3 (09:27→16:13)
[2019-02-16 20:08] VITALS: BP 124/80
[2019-02-16] MEDS: QUEtiapine FUMARATE 200 MG TABLET PO SCH (20:42)
[2019-02-17 01:20] VITALS: BP 120/71
[2019-02-17] MEDS: HALOPERIDOL 5 MG TABLET PO PRN ×3 (01:22→12:29)
[2019-02-17] MEDS: LORazepam 2 MG TABLET PO PRN ×4 (01:22→16:56)
[2019-02-17 08:00] VITALS: BP 139/87
[2019-02-17] MEDS: LevETIRAcetam 500 MG TABLET PO SCH ×2 (09:02→16:56)
[2019-02-17] MEDS: GABAPENTIN 400 MG CAPSULE PO SCH ×3 (09:02→16:56)
[2019-02-17] MEDS: PANTOPRAZOLE SODIUM 40 MG DR TABLET PO SCH (09:02)
[2019-02-17 17:00] VITALS: BP 110/68
[2019-02-17] MEDS: QUEtiapine FUMARATE 200 MG TABLET PO SCH (20:25)
[2019-02-18] MEDS: ZOLPIDEM TARTRATE 10 MG TABLET PO PRN (01:14)
[2019-02-18 02:18] VITALS: BP 136/79
[2019-02-18 06:13] VITALS: BP 115/85
[2019-02-18] MEDS: HALOPERIDOL 5 MG TABLET PO PRN (06:15)
[2019-02-18] MEDS: LORazepam 2 MG TABLET PO PRN ×2 (06:15→12:42)
[2019-02-18 08:00] VITALS: BP 126/77
[2019-02-18] MEDS: LevETIRAcetam 500 MG TABLET PO SCH (09:16)
[2019-02-18] MEDS: GABAPENTIN 400 MG CAPSULE PO SCH ×2 (09:16→12:40)
[2019-02-18] MEDS: PANTOPRAZOLE SODIUM 40 MG DR TABLET PO SCH (09:17)
== END 2019-02-18 14:50 | disposition home or self-care (01) | DRG 750 ==
LOC: EMS 22:13 → 3EI 02-10 04:41
PROVIDERS: ADMIT Psychiatry & Neurology Child & Adolescent Psychiatry; ATTEND Psychiatry & Neurology Psychiatry
DX: F25.1 Schizoaffective disorder, depressive type (principal); N17.9 Acute kidney failure, unspecified; R45.851 Suicidal ideations; F11.20 Opioid dependence, uncomplicated; G40.909 Epilepsy, unspecified, not intractable, without status epilepticus; E87.1 Hypo-osmolality and hyponatremia; Z59.0 Homelessness; J45.909 Unspecified asthma, uncomplicated; G89.4 Chronic pain syndrome; K21.9 Gastro-esophageal reflux disease without esophagitis; M54.30 Sciatica, unspecified side; F41.9 Anxiety disorder, unspecified; F10.20 Alcohol dependence, uncomplicated; Y90.9 Presence of alcohol in blood, level not specified; Z91.5 Personal history of self-harm; Z71.51 Drug abuse counseling and surveillance of drug abuser
CPT/HCPCS: 80307; 87081; G0480

== ENCOUNTER 2019-03-16 16:37 | Inpatient (IN) | payer MEDICAID, OTHER ==
[~2019-03-16] VITALS: Ht 177.8 cm; Wt 110.8 kg
[~2019-03-16 16:37] MED LIST changes: -DIPH25 PO; -GABA-533 PO; -HYDR-4031 PO; +RISP1 PO
[2019-03-16] MEDS ORDERED: GABA600T10 PO (17:16)
[2019-03-16] MEDS ORDERED: MELA3TAB66 PO (17:16)
[2019-03-16] MEDS ORDERED: BACL10TA PO (17:16)
[2019-03-16] MEDS ORDERED: MIRT15TA98 PO (17:16)
[2019-03-16 18:23] LABS: BASOPHILS % (AUTO) 0.9 % (0.0-2.0); EOSINOPHILS % (AUTO) 2.7 % (1.0-6.0); HEMATOCRIT 45.2 % (41-53); HEMOGLOBIN 15.1 g/dL (13.5-17.5); LYMPHOCYTES # (AUTO) 2.6 K/uL (1.0-4.8); LYMPHOCYTES % (AUTO) 30.1 % (22.0-44.0); MEAN CORPUSCULAR HEMOGLOBIN 30.5 pg (26.0-34.0); MEAN CORPUSCULAR HGB CONC 33.5 G/dL (31.0-37.0); MEAN CORPUSCULAR VOLUME 91 fL (80-100); MONOCYTES # (AUTO) 0.6 K/uL (0.1-1.0); MONOCYTES % (AUTO) 7.3 % (2.0-9.0); NEUTROPHILS # (AUTO) 5.2 K/uL (1.8-7.7); PLATELET COUNT (AUTO) 274 K/uL (150-450); RED BLOOD CELL COUNT(AUTO) 4.97 MIL/uL (4.50-5.90); RED CELL DISTRIBUTION WIDTH 13.4 % (11.5-14.5)
[2019-03-16 18:25] LABS: AMPHET/METH SCREEN,URINE NEGATIVE (NEGATIVE); BARBITURATE SCREEN, URINE NEGATIVE (NEGATIVE); BENZODIAZEPINES SCREEN,URINE NEGATIVE (NEGATIVE); CANNABINOID SCREEN,URINE NEGATIVE (NEGATIVE); COCAINE SCREEN,URINE NEGATIVE (NEGATIVE); METHADONE SCREEN, URINE NEGATIVE (NEGATIVE); OPIATE SCREEN,URINE NEGATIVE (NEGATIVE)
[2019-03-16 18:26] LABS: ANION GAP 14 mmol/L (8-16); CARBON DIOXIDE 23 mmol/L (22-29); CHLORIDE 105 mmol/L (98-107); CREATININE 1.19 mg/dL (0.60-1.30); GLOMERULAR FILTR. RATE CALC > 60 mL/min (>60); GLUCOSE,RANDOM 97 mg/dL (70-110); POTASSIUM 3.7 mmol/L (3.5-5.1); SODIUM SERUM 142 mmol/L (136-145); UREA NITROGEN, BLOOD 9 mg/dL (7-18)
[2019-03-16 18:26] LABS: PHENCYCLIDINE SCREEN,URINE NEGATIVE (NEGATIVE)
[2019-03-16 18:34] LABS: ALANINE AMINOTRANSFERASE 35 U/L (12-78); ALBUMIN 4.4 g/dL (3.4-5.0); ALKALINE PHOSPHATASE 59 U/L (46-116); ASPARTATE AMINOTRANSFERASE 21 U/L (15-37); BILIRUBIN,TOTAL 0.3 mg/dL (0.1-1.0); TOTAL PROTEIN, SERUM 7.6 g/dL (6.4-8.2)
[2019-03-16 18:38] LABS: ACETAMINOPHEN < 2 mcg/mL (10-30)
[2019-03-16] MEDS ORDERED: IBUPROFEN 400 MG TABLET PO PRN (20:30)
[2019-03-16] MEDS ORDERED: ZOLPIDEM TARTRATE 10 MG TABLET PO PRN (20:30)
[2019-03-16] MEDS ORDERED: ACETAMINOPHEN 325 MG TABLET PO PRN (20:30)
[2019-03-16] MEDS ORDERED: HALOPERIDOL 5 MG TABLET PO PRN (20:30)
[2019-03-17 00:57] VITALS: BP 154/114
[2019-03-17 06:19] LABS: BASOPHILS % (AUTO) 0.6 % (0.0-2.0); EOSINOPHILS % (AUTO) 4.5 % (1.0-6.0); HEMATOCRIT 46.4 % (41-53); HEMOGLOBIN 15.4 g/dL (13.5-17.5); LYMPHOCYTES # (AUTO) 1.6 K/uL (1.0-4.8); LYMPHOCYTES % (AUTO) 28.7 % (22.0-44.0); MEAN CORPUSCULAR HEMOGLOBIN 30.7 pg (26.0-34.0); MEAN CORPUSCULAR HGB CONC 33.2 G/dL (31.0-37.0); MEAN CORPUSCULAR VOLUME 93 fL (80-100); MONOCYTES # (AUTO) 0.5 K/uL (0.1-1.0); NEUTROPHILS # (AUTO) 3.1 K/uL (1.8-7.7); NEUTROPHILS % (AUTO) 56.2 % (40.0-70.0); PLATELET COUNT (AUTO) 255 K/uL (150-450); RED BLOOD CELL COUNT(AUTO) 5.01 MIL/uL (4.50-5.90); RED CELL DISTRIBUTION WIDTH 13.5 % (11.5-14.5)
[2019-03-17 07:01] LABS: ALANINE AMINOTRANSFERASE 36 U/L (12-78); ALBUMIN 4.2 g/dL (3.4-5.0); ALKALINE PHOSPHATASE 58 U/L (46-116); ANION GAP 10 mmol/L (8-16); ASPARTATE AMINOTRANSFERASE 19 U/L (15-37); BILIRUBIN,TOTAL 0.4 mg/dL (0.1-1.0); CALCIUM, TOTAL 9.6 mg/dL (8.8-10.5); CARBON DIOXIDE 26 mmol/L (22-29); CHLORIDE 106 mmol/L (98-107); CHOL/HDL RATIO 3.7 (4.2-7.3); CHOLESTEROL 201 mg/dL (131-200); CREATININE 1.13 mg/dL (0.60-1.30); GLOMERULAR FILTR. RATE CALC > 60 mL/min (>60); GLUCOSE,RANDOM 100 mg/dL (70-110); HDL CHOLESTEROL 55 mg/dL (40-60); LDL CHOL (CALC.) 110 mg/dL (0-130); POTASSIUM 4.3 mmol/L (3.5-5.1); SODIUM SERUM 142 mmol/L (136-145); THYROID STIMULATING HORMONE 0.84 uIU/mL (0.36-3.74); TOTAL PROTEIN, SERUM 6.9 g/dL (6.4-8.2); TRIGLYCERIDES 179 mg/dL (15-150); UREA NITROGEN, BLOOD 10 mg/dL (7-18)
[2019-03-17 11:05] VITALS: BP 121/84
[2019-03-17] MEDS ORDERED: LOPERAMIDE HCL 2 MG CAPSULE PO PRN (12:45)
[2019-03-17] MEDS ORDERED: NICOTINE 14 MG/24 HOUR PATCH TD PRN (12:45)
[2019-03-17] MEDS ORDERED: ALBUTEROL SULFATE HFA 90 MCG/PUFF 8 GM INHALER IH PRN (12:45)
[2019-03-17] MEDS ORDERED: ONDANSETRON HCL 4 MG TABLET PO PRN (12:45)
[2019-03-17] MEDS ORDERED: DOCUSATE SODIUM 100 MG CAPSULE PO PRN (12:45)
[2019-03-17] MEDS ORDERED: MAGNESIUM HYDROXIDE SUSPENSION 30 ML UDCUP PO PRN (12:45)
[2019-03-17] MEDS ORDERED: ACETAMINOPHEN 325 MG TABLET PO PRN (12:45)
[2019-03-17] MEDS ORDERED: GuaiFENesin/D-METHORPHAN [SUGAR-FREE] 200-20MG/10 ML SYRUP UDCUP PO PRN (12:45)
[2019-03-17] MEDS ORDERED: IBUPROFEN 400 MG TABLET PO PRN (12:45)
[2019-03-17] MEDS ORDERED: CloNIDine HCL 0.1 MG TABLET PO PRN (12:45)
[2019-03-17] MEDS ORDERED: MAG HYDROX/AL HYDROX/SIMETH ES 30 ML SUSPENSION UDCUP PO PRN (12:45)
[2019-03-17] MEDS ORDERED: PETROLATUM,WHITE 28 GM JELLY TP PRN (12:45)
[2019-03-17] MEDS: BACLOFEN 10 MG TABLET PO SCH ×2 (14:02→17:19)
[2019-03-17] MEDS: LevETIRAcetam 500 MG TABLET PO SCH (17:19)
[2019-03-17] MEDS: RisperiDONE 1 MG TABLET PO SCH (17:19)
[2019-03-17] MEDS: GABAPENTIN 300 MG CAPSULE PO SCH (17:19)
[2019-03-17] MEDS: LORazepam 2 MG TABLET PO PRN (17:47)
[2019-03-17 18:00] VITALS: BP 139/81
[2019-03-17] MEDS: QUEtiapine FUMARATE 200 MG TABLET PO SCH (21:00)
[2019-03-18 11:29] VITALS: BP 126/66
[2019-03-18] MEDS: GABAPENTIN 300 MG CAPSULE PO SCH ×2 (11:35→16:43)
[2019-03-18] MEDS: LevETIRAcetam 500 MG TABLET PO SCH ×2 (11:35→16:42)
[2019-03-18] MEDS: RisperiDONE 1 MG TABLET PO SCH ×2 (11:35→16:43)
[2019-03-18] MEDS: BACLOFEN 10 MG TABLET PO SCH ×3 (11:36→16:43)
[2019-03-18] MEDS: PANTOPRAZOLE SODIUM 40 MG DR TABLET PO SCH (11:36)
[2019-03-18] MEDS: MIRTAZAPINE 15 MG TABLET PO SCH (11:36)
[2019-03-18] MEDS: LORazepam 2 MG TABLET PO PRN ×2 (11:52→17:40)
[2019-03-18 16:30] VITALS: BP 147/91
[2019-03-18] MEDS: QUEtiapine FUMARATE 200 MG TABLET PO SCH (20:39)
[2019-03-19] MEDS: LORazepam 2 MG TABLET PO PRN ×3 (08:02→16:49)
[2019-03-19] MEDS: LevETIRAcetam 500 MG TABLET PO SCH ×2 (08:03→16:49)
[2019-03-19] MEDS: RisperiDONE 1 MG TABLET PO SCH ×2 (08:03→16:50)
[2019-03-19] MEDS: GABAPENTIN 300 MG CAPSULE PO SCH ×2 (08:03→16:50)
[2019-03-19] MEDS: PANTOPRAZOLE SODIUM 40 MG DR TABLET PO SCH (08:04)
[2019-03-19] MEDS: MIRTAZAPINE 15 MG TABLET PO SCH (08:04)
[2019-03-19] MEDS: BACLOFEN 10 MG TABLET PO SCH ×3 (08:13→16:50)
[2019-03-19 14:33] VITALS: BP 112/46
[2019-03-19 16:50] VITALS: BP 137/77
[2019-03-19] MEDS: QUEtiapine FUMARATE 200 MG TABLET PO SCH (20:26)
[2019-03-20 00:13] VITALS: BP 122/82
[2019-03-20] MEDS: LORazepam 2 MG TABLET PO PRN ×2 (03:39→09:09)
[2019-03-20] MEDS: BACLOFEN 10 MG TABLET PO SCH ×3 (07:58→16:39)
[2019-03-20] MEDS: GABAPENTIN 300 MG CAPSULE PO SCH ×2 (07:59→16:37)
[2019-03-20] MEDS: PANTOPRAZOLE SODIUM 40 MG DR TABLET PO SCH (07:59)
[2019-03-20] MEDS: LevETIRAcetam 500 MG TABLET PO SCH ×2 (07:59→16:40)
[2019-03-20] MEDS: MIRTAZAPINE 15 MG TABLET PO SCH (08:00)
[2019-03-20] MEDS: RisperiDONE 1 MG TABLET PO SCH ×2 (08:00→16:40)
[2019-03-20 10:24] VITALS: BP 141/94
[2019-03-20 17:35] VITALS: BP 122/72
[2019-03-20] MEDS: QUEtiapine FUMARATE 200 MG TABLET PO SCH (20:42)
[2019-03-21 03:21] VITALS: BP 116/69
[2019-03-21] MEDS: GABAPENTIN 300 MG CAPSULE PO SCH ×2 (09:34→16:11)
[2019-03-21] MEDS: MIRTAZAPINE 15 MG TABLET PO SCH (09:35)
[2019-03-21] MEDS: RisperiDONE 1 MG TABLET PO SCH ×2 (09:35→16:11)
[2019-03-21] MEDS: LevETIRAcetam 500 MG TABLET PO SCH ×2 (09:36→16:11)
[2019-03-21] MEDS: PANTOPRAZOLE SODIUM 40 MG DR TABLET PO SCH (09:36)
[2019-03-21] MEDS: BACLOFEN 10 MG TABLET PO SCH ×3 (09:37→16:11)
[2019-03-21 17:18] VITALS: BP 126/80
[2019-03-21] MEDS: QUEtiapine FUMARATE 200 MG TABLET PO SCH (21:01)
[2019-03-22] MEDS: PANTOPRAZOLE SODIUM 40 MG DR TABLET PO SCH (09:25)
[2019-03-22] MEDS: RisperiDONE 1 MG TABLET PO SCH ×2 (09:25→17:02)
[2019-03-22] MEDS: MIRTAZAPINE 15 MG TABLET PO SCH (09:25)
[2019-03-22] MEDS: GABAPENTIN 300 MG CAPSULE PO SCH ×2 (09:25→16:27)
[2019-03-22] MEDS: BACLOFEN 10 MG TABLET PO SCH ×3 (09:25→16:28)
[2019-03-22] MEDS: LevETIRAcetam 500 MG TABLET PO SCH ×2 (09:26→16:27)
[2019-03-22 14:52] VITALS: BP 150/103
[2019-03-22 16:59] VITALS: BP 134/77
[2019-03-22] MEDS: QUEtiapine FUMARATE 200 MG TABLET PO SCH (20:49)
[2019-03-23] MEDS: MIRTAZAPINE 15 MG TABLET PO SCH (09:11)
[2019-03-23] MEDS: LevETIRAcetam 500 MG TABLET PO SCH (09:11)
[2019-03-23] MEDS: PANTOPRAZOLE SODIUM 40 MG DR TABLET PO SCH (09:12)
[2019-03-23] MEDS: GABAPENTIN 300 MG CAPSULE PO SCH (09:12)
[2019-03-23] MEDS: BACLOFEN 10 MG TABLET PO SCH (09:12)
[2019-03-23] MEDS: RisperiDONE 1 MG TABLET PO SCH (09:13)
[2019-03-23] MEDS ORDERED: BACLOFEN 10 MG TABLET PO SCH (17:00)
== END 2019-03-23 15:10 | disposition home or self-care (01) | DRG 750 ==
LOC: EMS 16:39 → 3EI 21:30
PROVIDERS: ADMIT Psychiatry & Neurology Psychiatry; ATTEND Psychiatry & Neurology Psychiatry
DX: F25.9 Schizoaffective disorder, unspecified (principal); F11.20 Opioid dependence, uncomplicated; G40.909 Epilepsy, unspecified, not intractable, without status epilepticus; E78.5 Hyperlipidemia, unspecified; F10.10 Alcohol abuse, uncomplicated; I10 Essential (primary) hypertension; J45.909 Unspecified asthma, uncomplicated; K21.9 Gastro-esophageal reflux disease without esophagitis; Z59.0 Homelessness; F41.9 Anxiety disorder, unspecified; M72.2 Plantar fascial fibromatosis
CPT/HCPCS: 83036; 84443; 93005; G0480; G0481

== ENCOUNTER 2019-09-15 20:56 | Emergency (ER) | payer MEDICAID, OTHER ==
[~2019-09-15] VITALS: Ht 180.3 cm; Wt 107.0 kg
[~2019-09-15 20:56] MED LIST changes: +BACL10TA PO; +GABA600T10 PO; +MIRT15TA98 PO
[2019-09-15 22:11] LABS: GLUCOSE,POINT OF CARE 122 MG/DL (70-110)
[2019-09-15] MEDS ORDERED: LevETIRAcetam 1,000 MG in DEXTROSE 5%-WATER 100 ML IV ONE (22:15)
[2019-09-15 22:35] LABS: BASOPHILS % (AUTO) 0.4 % (0.0-2.0); EOSINOPHILS % (AUTO) 0.3 % (1.0-6.0); HEMATOCRIT 45.5 % (41-53); MEAN CORPUSCULAR HEMOGLOBIN 31.7 pg (26.0-34.0); MEAN CORPUSCULAR HGB CONC 35.2 G/dL (31.0-37.0); MEAN CORPUSCULAR VOLUME 90 fL (80-100); MONOCYTES # (AUTO) 0.5 K/uL (0.1-1.0); MONOCYTES % (AUTO) 5.7 % (2.0-9.0); NEUTROPHILS # (AUTO) 7.5 K/uL (1.8-7.7); NEUTROPHILS % (AUTO) 82.6 % (40.0-70.0); PLATELET COUNT (AUTO) 251 K/uL (150-450); RED BLOOD CELL COUNT(AUTO) 5.05 MIL/uL (4.50-5.90); RED CELL DISTRIBUTION WIDTH 13.3 % (11.5-14.5)
[2019-09-15 22:47] LABS: CREATININE 1.46 mg/dL (0.60-1.30); POTASSIUM 3.7 mmol/L (3.5-5.1)
[2019-09-15 22:53] LABS: ALBUMIN 4.3 g/dL (3.4-5.0); BILIRUBIN,TOTAL 0.2 mg/dL (0.1-1.0); TOTAL PROTEIN, SERUM 7.7 g/dL (6.4-8.2)
[2019-09-15 22:56] LABS: AMMONIA 11 umol/L (11-32); TROPONIN I < 0.02 ng/mL (0.00-0.05)
[2019-09-15] MEDS ORDERED: SODIUM CHLORIDE 0.9% 1,000 ML IV ONE (23:30)
[2019-09-15 23:56] LABS: APPEARANCE,URINE CLOUDY (CLEAR); BILIRUBIN,URINE NEGATIVE (NEGATIVE); GLUCOSE, URINE (UA) NEGATIVE (NEGATIVE); KETONES,URINE TRACE mg/dL (NEGATIVE); LEUKOCYTE ESTERASE ,URINE NEGATIVE (NEGATIVE); NITRATE,URINE NEGATIVE (NEGATIVE); OCCULT BLOOD,URINE SMALL (NEGATIVE); PROTEIN,URINE NEGATIVE (NEGATIVE); UROBILINOGEN,URINE 0.2 mg/dL (<=1.0)
[2019-09-16 00:03] LABS: AMPHET/METH SCREEN,URINE POSITIVE (NEGATIVE); BARBITURATE SCREEN, URINE NEGATIVE (NEGATIVE); BENZODIAZEPINES SCREEN,URINE NEGATIVE (NEGATIVE); CANNABINOID SCREEN,URINE POSITIVE (NEGATIVE); COCAINE SCREEN,URINE NEGATIVE (NEGATIVE); METHADONE SCREEN, URINE NEGATIVE (NEGATIVE); OPIATE SCREEN,URINE NEGATIVE (NEGATIVE)
[2019-09-16 00:05] LABS: PHENCYCLIDINE SCREEN,URINE NEGATIVE (NEGATIVE)
[2019-09-16 00:06] LABS: RBC,URINE 0-2 /HPF (0-2)
[2019-09-16 00:07] LABS: BACTERIA,URINE None Seen /HPF (None Seen); SQUAMOUS EPITHELIAL CELL,UR Rare /LPF (None Seen); WBC,URINE 0-2 /HPF (0-5)
[2019-09-16] MEDS ORDERED: ONDANSETRON HCL 4 MG/2 ML VIAL IVP ONE (00:45)
[2019-09-16] MEDS ORDERED: SODIUM CHLORIDE 0.9% 1,000 ML IV ONE (00:45)
[2019-09-16 02:30] VITALS: BP 127/75
== END 2019-09-16 02:57 | disposition home or self-care (01) ==
LOC: EMS 20:58
DX: G43.909 Migraine, unspecified, not intractable, without status migrainosus (principal); R41.0 Disorientation, unspecified; J45.909 Unspecified asthma, uncomplicated; F10.20 Alcohol dependence, uncomplicated; F41.9 Anxiety disorder, unspecified; F31.9 Bipolar disorder, unspecified; F20.9 Schizophrenia, unspecified; Z98.890 Other specified postprocedural states; Z79.899 Other long term (current) drug therapy
CPT/HCPCS: 36415; 70450; 80053; 80307; 81001; 82140; 82962; 84484; 85025; 85730; 93005; 96361 ×2; 96374; 96375; 99285; J0712; J2405; J7030 ×2; J7060

== ENCOUNTER 2020-11-27 14:40 | Emergency (ER) | payer OTHER ==
[~2020-11-27] VITALS: Ht 177.8 cm; Wt 86.4 kg
[~2020-11-27 14:40] MED LIST changes: +AMOX1TAB16 PO; +CHOL200016 PO; +FAMO20 PO; -MIRT15TA98 PO; -PANT40TA25 PO; -QUET200T PO; -RISP1 PO
[2020-11-27] MEDS ORDERED: SODIUM CHLORIDE 0.9% 1,000 ML IV ONE ×2 (15:15→16:30)
[2020-11-27] MEDS ORDERED: ONDANSETRON HCL 4 MG/2 ML VIAL IVP ONE (15:15)
[2020-11-27 15:35] LABS: BASOPHILS % (AUTO) 0.4 % (0.0-2.0); EOSINOPHILS % (AUTO) 0.3 % (1.0-6.0); HEMATOCRIT 43.1 % (41-53); LYMPHOCYTES # (AUTO) 1.5 K/uL (1.0-4.8); MEAN CORPUSCULAR HEMOGLOBIN 31.7 pg (26.0-34.0); MEAN CORPUSCULAR HGB CONC 34.8 G/dL (31.0-37.0); MEAN CORPUSCULAR VOLUME 91 fL (80-100); MONOCYTES # (AUTO) 0.7 K/uL (0.1-1.0); MONOCYTES % (AUTO) 8.6 % (2.0-9.0); NEUTROPHILS # (AUTO) 6.3 K/uL (1.8-7.7); NEUTROPHILS % (AUTO) 73.7 % (40.0-70.0); PLATELET COUNT (AUTO) 305 K/uL (150-450); RED BLOOD CELL COUNT(AUTO) 4.73 MIL/uL (4.50-5.90); RED CELL DISTRIBUTION WIDTH 13.7 % (11.5-14.5)
[2020-11-27 15:43] LABS: CALCIUM, TOTAL 10.8 mg/dL (8.8-10.5); CREATININE 1.39 mg/dL (0.60-1.30); POTASSIUM 3.6 mmol/L (3.5-5.1)
[2020-11-27 15:49] LABS: ALBUMIN 4.9 g/dL (3.4-5.0); BILIRUBIN,TOTAL 0.6 mg/dL (0.1-1.0); TOTAL PROTEIN, SERUM 9.1 g/dL (6.4-8.2)
[2020-11-27] MEDS ORDERED: METOCLOPRAMIDE HCL 5 MG/ML 2 ML VIAL IVP ONE (16:30)
[2020-11-27] MEDS ORDERED: ACETAMINOPHEN 1000 MG/ISO-OSM 100 ML IV ONE (17:00)
[2020-11-27 18:11] VITALS: BP 140/91
== END 2020-11-27 18:31 | disposition home or self-care (01) ==
LOC: EMS 14:40
DX: R11.2 Nausea with vomiting, unspecified (principal); R10.12 Left upper quadrant pain; R61 Generalized hyperhidrosis; J45.909 Unspecified asthma, uncomplicated; F41.9 Anxiety disorder, unspecified; F32.9 Major depressive disorder, single episode, unspecified; F20.9 Schizophrenia, unspecified; F17.210 Nicotine dependence, cigarettes, uncomplicated; F12.90 Cannabis use, unspecified, uncomplicated
CPT/HCPCS: 36415; 74176; 80053; 83690; 85025; 96361; 96365; 96375; 99285; J0131; J2405; J2765; J7030

== ENCOUNTER 2020-11-28 22:11 | Inpatient (IN) | payer MEDICAID, OTHER ==
[~2020-11-28] VITALS: Ht 180.3 cm; Wt 98.3 kg
[2020-11-28 23:12] LABS: BASOPHILS % (AUTO) 0.6 % (0.0-2.0); HEMATOCRIT 40.8 % (41-53); LYMPHOCYTES # (AUTO) 2.4 K/uL (1.0-4.8); LYMPHOCYTES % (AUTO) 43.6 % (22.0-44.0); MEAN CORPUSCULAR HEMOGLOBIN 31.4 pg (26.0-34.0); MEAN CORPUSCULAR HGB CONC 34.4 G/dL (31.0-37.0); MEAN CORPUSCULAR VOLUME 92 fL (80-100); MONOCYTES # (AUTO) 0.6 K/uL (0.1-1.0); NEUTROPHILS # (AUTO) 2.5 K/uL (1.8-7.7); NEUTROPHILS % (AUTO) 44.8 % (40.0-70.0); PLATELET COUNT (AUTO) 284 K/uL (150-450); RED BLOOD CELL COUNT(AUTO) 4.46 MIL/uL (4.50-5.90); RED CELL DISTRIBUTION WIDTH 13.8 % (11.5-14.5)
[2020-11-28 23:20] LABS: CALCIUM, TOTAL 9.5 mg/dL (8.8-10.5); CREATININE 1.34 mg/dL (0.60-1.30); POTASSIUM 3.9 mmol/L (3.5-5.1)
[2020-11-28 23:25] LABS: ALBUMIN 4.4 g/dL (3.4-5.0); BILIRUBIN,TOTAL 0.4 mg/dL (0.1-1.0); TOTAL PROTEIN, SERUM 8.6 g/dL (6.4-8.2)
[2020-11-29] MEDS ORDERED: ONDANSETRON HCL 4 MG/2 ML VIAL IVP ONE (00:30)
[2020-11-29] MEDS ORDERED: ZOLPIDEM TARTRATE 10 MG TABLET PO PRN (00:30)
[2020-11-29] MEDS ORDERED: SODIUM CHLORIDE 0.9% 1,000 ML IV ONE (00:30)
[2020-11-29 01:49] LABS: COVID AG,FIA SOURCE NASOPHARYNGEAL
[2020-11-29] MEDS ORDERED: DiphenhydrAMINE HCL 50 MG/ML VIAL IVP STA (02:13)
[2020-11-29] MEDS ORDERED: METOCLOPRAMIDE HCL 5 MG/ML 2 ML VIAL IVP ONE (02:15)
[2020-11-29 02:41] LABS: APPEARANCE,URINE CLEAR (CLEAR); BILIRUBIN,URINE NEGATIVE (NEGATIVE); GLUCOSE, URINE (UA) NEGATIVE (NEGATIVE); KETONES,URINE NEGATIVE (NEGATIVE); LEUKOCYTE ESTERASE ,URINE NEGATIVE (NEGATIVE); NITRATE,URINE NEGATIVE (NEGATIVE); OCCULT BLOOD,URINE NEGATIVE (NEGATIVE); PH,URINE 5.5 (5.0-8.0); PROTEIN,URINE TRACE (NEGATIVE); UROBILINOGEN,URINE 0.2 mg/dL (<=1.0)
[2020-11-29 02:48] LABS: AMPHET/METH SCREEN,URINE NEGATIVE (NEGATIVE); BARBITURATE SCREEN, URINE NEGATIVE (NEGATIVE); BENZODIAZEPINES SCREEN,URINE NEGATIVE (NEGATIVE); CANNABINOID SCREEN,URINE POSITIVE (NEGATIVE); COCAINE SCREEN,URINE NEGATIVE (NEGATIVE); METHADONE SCREEN, URINE NEGATIVE (NEGATIVE); OPIATE SCREEN,URINE POSITIVE (NEGATIVE)
[2020-11-29 02:56] LABS: PHENCYCLIDINE SCREEN,URINE NEGATIVE (NEGATIVE)
[2020-11-29 06:03] VITALS: BP 143/87
[2020-11-29] MEDS: LORazepam 2 MG TABLET PO PRN ×4 (07:39→23:53)
[2020-11-29 08:52] VITALS: BP 138/95
[2020-11-29 09:08] VITALS: BP 138/95
[2020-11-29] MEDS: FAMOTIDINE 20 MG TABLET PO SCH (10:24)
[2020-11-29] MEDS ORDERED: NICOTINE 14 MG/24 HOUR PATCH TD PRN (12:45)
[2020-11-29] MEDS ORDERED: IBUPROFEN 400 MG TABLET PO PRN (12:45)
[2020-11-29] MEDS ORDERED: PETROLATUM,WHITE 28 GM JELLY TP PRN (12:45)
[2020-11-29] MEDS ORDERED: MAG HYDROX/AL HYDROX/SIMETH ES 30 ML SUSPENSION UDCUP PO PRN (12:45)
[2020-11-29] MEDS ORDERED: MAGNESIUM HYDROXIDE SUSPENSION 30 ML UDCUP PO PRN (12:45)
[2020-11-29] MEDS ORDERED: LOPERAMIDE HCL 2 MG CAPSULE PO PRN (12:45)
[2020-11-29] MEDS ORDERED: ONDANSETRON HCL 4 MG TABLET PO PRN (12:45)
[2020-11-29] MEDS ORDERED: ACETAMINOPHEN 325 MG TABLET PO PRN (12:45)
[2020-11-29] MEDS ORDERED: DOCUSATE SODIUM 100 MG CAPSULE PO PRN (12:45)
[2020-11-29] MEDS ORDERED: ALBUTEROL SULFATE HFA 90 MCG/PUFF 8 GM INHALER IH PRN (12:45)
[2020-11-29] MEDS ORDERED: CloNIDine HCL 0.1 MG TABLET PO PRN (12:45)
[2020-11-29] MEDS ORDERED: GuaiFENesin/D-METHORPHAN [SUGAR-FREE] 200-20MG/10 ML SYRUP UDCUP PO PRN (12:45)
[2020-11-29] MEDS: LURASIDONE HCL 40 MG TABLET PO SCH ×2 (13:15→20:20)
[2020-11-29 16:00] VITALS: BP 110/67
[2020-11-29] MEDS: BACLOFEN 10 MG TABLET PO SCH (17:27)
[2020-11-29 21:00] VITALS: BP 138/77
[2020-11-30 01:57] VITALS: BP 136/97
[2020-11-30 07:18] LABS: CHOL/HDL RATIO 3.5 (4.2-7.3)
[2020-11-30] MEDS: CHOLECALCIFEROL (VIT D3) 2,000 UNITS [50 MCG] TABLET PO SCH (08:06)
[2020-11-30] MEDS: LURASIDONE HCL 40 MG TABLET PO SCH ×2 (08:06→20:39)
[2020-11-30] MEDS: LORazepam 2 MG TABLET PO PRN ×3 (08:06→17:53)
[2020-11-30] MEDS: FAMOTIDINE 20 MG TABLET PO SCH (08:06)
[2020-11-30] MEDS: BACLOFEN 10 MG TABLET PO SCH ×2 (08:06→17:50)
[2020-11-30 10:53] VITALS: BP 158/97
[2020-11-30] MEDS: QUEtiapine FUMARATE 200 MG TABLET PO PRN (12:51)
[2020-11-30 16:10] VITALS: BP 134/84
[2020-11-30] MEDS ORDERED: GABAPENTIN 100 MG CAPSULE PO SCH (17:00)
[2020-11-30] MEDS ORDERED: GABAPENTIN 400 MG CAPSULE PO SCH (17:00)
[2020-11-30] MEDS: GABAPENTIN 300 MG CAPSULE PO SCH (17:50)
[2020-11-30] MEDS: BusPIRone HCL 15 MG TABLET PO SCH (17:50)
[2020-11-30] MEDS: LevETIRAcetam 500 MG TABLET PO SCH (17:50)
[2020-12-01 05:20] VITALS: BP 144/93
[2020-12-01] MEDS: LORazepam 2 MG TABLET PO PRN ×4 (05:42→18:53)
[2020-12-01] MEDS ORDERED: IBUPROFEN 400 MG TABLET PO PRN (07:00)
[2020-12-01] MEDS: BACLOFEN 10 MG TABLET PO SCH ×2 (08:06→16:42)
[2020-12-01] MEDS: LevETIRAcetam 500 MG TABLET PO SCH ×2 (08:06→16:43)
[2020-12-01] MEDS: LURASIDONE HCL 40 MG TABLET PO SCH ×2 (08:06→20:13)
[2020-12-01] MEDS: FAMOTIDINE 20 MG TABLET PO SCH (08:07)
[2020-12-01] MEDS: BusPIRone HCL 15 MG TABLET PO SCH ×2 (08:07→16:42)
[2020-12-01] MEDS: GABAPENTIN 300 MG CAPSULE PO SCH ×3 (08:07→16:42)
[2020-12-01] MEDS: CHOLECALCIFEROL (VIT D3) 2,000 UNITS [50 MCG] TABLET PO SCH (08:07)
[2020-12-01 12:05] VITALS: BP 128/84
[2020-12-01] MEDS: TraMADol HCL 50 MG TABLET PO PRN (12:10)
[2020-12-01 13:10] VITALS: BP 139/84
[2020-12-01 16:00] VITALS: BP 137/85
[2020-12-01 18:15] VITALS: BP 148/100
[2020-12-01] MEDS ORDERED: TraMADol HCL 50 MG TABLET PO ONE (18:15)
[2020-12-01 18:50] VITALS: BP 153/93
[2020-12-01] MEDS: QUEtiapine FUMARATE 200 MG TABLET PO PRN (21:46)
[2020-12-02 06:10] VITALS: BP 149/98
[2020-12-02] MEDS: LORazepam 2 MG TABLET PO PRN ×3 (06:13→17:52)
[2020-12-02] MEDS: TraMADol HCL 50 MG TABLET PO PRN ×2 (06:13→16:18)
[2020-12-02 07:06] LABS: ANION GAP 12 mmol/L (8-16); CARBON DIOXIDE 24 mmol/L (22-29); CHLORIDE 105 mmol/L (98-107); GLOMERULAR FILTR. RATE CALC > 60 mL/min (>60); GLUCOSE,RANDOM 100 mg/dL (70-110); POTASSIUM 4.1 mmol/L (3.5-5.1); SODIUM SERUM 141 mmol/L (136-145); UREA NITROGEN, BLOOD 16 mg/dL (7-18)
[2020-12-02 08:19] VITALS: BP 148/96
[2020-12-02] MEDS: BACLOFEN 10 MG TABLET PO SCH ×2 (08:52→16:12)
[2020-12-02] MEDS: BusPIRone HCL 15 MG TABLET PO SCH ×2 (08:52→16:11)
[2020-12-02] MEDS: CHOLECALCIFEROL (VIT D3) 2,000 UNITS [50 MCG] TABLET PO SCH (08:52)
[2020-12-02] MEDS: FAMOTIDINE 20 MG TABLET PO SCH (08:52)
[2020-12-02] MEDS: LevETIRAcetam 500 MG TABLET PO SCH ×2 (08:52→16:12)
[2020-12-02] MEDS: LURASIDONE HCL 40 MG TABLET PO SCH ×2 (08:52→20:04)
[2020-12-02] MEDS: GABAPENTIN 300 MG CAPSULE PO SCH ×3 (08:52→16:12)
[2020-12-02] MEDS: BACITRACIN 28 GM OINTMENT TP SCH ×2 (10:32→17:21)
[2020-12-02 16:09] VITALS: BP 131/93
[2020-12-02 17:50] VITALS: BP 133/96
[2020-12-02] MEDS: QUEtiapine FUMARATE 200 MG TABLET PO PRN (20:04)
[2020-12-02] MEDS: CYCLOBENZAPRINE HCL 10 MG TABLET PO PRN (20:17)
[2020-12-03 03:55] VITALS: BP 132/92
[2020-12-03] MEDS: TraMADol HCL 50 MG TABLET PO PRN (03:59)
[2020-12-03] MEDS: LORazepam 2 MG TABLET PO PRN ×2 (04:03→08:39)
[2020-12-03 08:30] VITALS: BP 126/95
[2020-12-03] MEDS: BACLOFEN 10 MG TABLET PO SCH (08:32)
[2020-12-03] MEDS: BusPIRone HCL 15 MG TABLET PO SCH (08:32)
[2020-12-03] MEDS: LevETIRAcetam 500 MG TABLET PO SCH (08:32)
[2020-12-03] MEDS: LURASIDONE HCL 40 MG TABLET PO SCH (08:32)
[2020-12-03] MEDS: GABAPENTIN 300 MG CAPSULE PO SCH (08:33)
[2020-12-03] MEDS: FAMOTIDINE 20 MG TABLET PO SCH (08:33)
[2020-12-03] MEDS: CHOLECALCIFEROL (VIT D3) 2,000 UNITS [50 MCG] TABLET PO SCH (08:33)
[2020-12-03] MEDS: BACITRACIN 28 GM OINTMENT TP SCH (08:38)
[2020-12-03] MEDS: CYCLOBENZAPRINE HCL 10 MG TABLET PO PRN (08:47)
== END 2020-12-03 13:05 | disposition home or self-care (01) | DRG 750 ==
LOC: EMS 22:17 → 3EI 11-29 00:28
PROVIDERS: ADMIT Psychiatry & Neurology Child & Adolescent Psychiatry; ATTEND Psychiatry & Neurology Child & Adolescent Psychiatry
DX: F25.1 Schizoaffective disorder, depressive type (principal); R45.851 Suicidal ideations; G40.909 Epilepsy, unspecified, not intractable, without status epilepticus; Z20.822 Contact with and (suspected) exposure to COVID-19; J45.909 Unspecified asthma, uncomplicated; K21.9 Gastro-esophageal reflux disease without esophagitis; I10 Essential (primary) hypertension; F12.90 Cannabis use, unspecified, uncomplicated; E56.9 Vitamin deficiency, unspecified; F41.9 Anxiety disorder, unspecified; F10.10 Alcohol abuse, uncomplicated
CPT/HCPCS: 72040; 80048; 80053; 80061; 81003; 83036; 83605; 83690; 85025; 87426; 99285; G0480; J1200; J2405; J2765; J7030

== ENCOUNTER 2020-12-17 16:35 | Inpatient (IN) | payer MEDICAID, OTHER ==
[~2020-12-17] VITALS: Ht 180.3 cm; Wt 98.0 kg
[2020-12-17] MEDS ORDERED: BUSP5TAB20 PO (16:48)
[2020-12-17] MEDS ORDERED: LEVE250T55 PO (16:48)
[2020-12-17] MEDS ORDERED: GABA-1216 PO (16:48)
[2020-12-17] MEDS ORDERED: AMLO2.5T96 PO (16:48)
[2020-12-17 17:23] LABS: BASOPHILS % (AUTO) 0.5 % (0.0-2.0); EOSINOPHILS % (AUTO) 1.2 % (1.0-6.0); HEMATOCRIT 41.7 % (41-53); HEMOGLOBIN 14.2 g/dL (13.5-17.5); LYMPHOCYTES # (AUTO) 1.4 K/uL (1.0-4.8); LYMPHOCYTES % (AUTO) 19.1 % (22.0-44.0); MEAN CORPUSCULAR HEMOGLOBIN 31.4 pg (26.0-34.0); MEAN CORPUSCULAR VOLUME 93 fL (80-100); MONOCYTES # (AUTO) 0.6 K/uL (0.1-1.0); MONOCYTES % (AUTO) 7.9 % (2.0-9.0); NEUTROPHILS # (AUTO) 5.2 K/uL (1.8-7.7); NEUTROPHILS % (AUTO) 71.3 % (40.0-70.0); PLATELET COUNT (AUTO) 239 K/uL (150-450); RED BLOOD CELL COUNT(AUTO) 4.51 MIL/uL (4.50-5.90); RED CELL DISTRIBUTION WIDTH 13.7 % (11.5-14.5)
[2020-12-17] MEDS ORDERED: FAMO20 PO (17:27)
[2020-12-17] MEDS ORDERED: METO-408 PO (17:27)
[2020-12-17] MEDS ORDERED: FISH1 PO (17:27)
[2020-12-17] MEDS ORDERED: AMLO-258 PO (17:27)
[2020-12-17] MEDS ORDERED: CHOL100044 PO (17:27)
[2020-12-17] MEDS ORDERED: ALBU8HFA IH (17:27)
[2020-12-17] MEDS ORDERED: HALOPERIDOL 5 MG TABLET PO ONE (17:30)
[2020-12-17] MEDS ORDERED: DiphenhydrAMINE HCL 50 MG CAPSULE PO ONE (17:30)
[2020-12-17] MEDS ORDERED: LORazepam 2 MG TABLET PO ONE (17:30)
[2020-12-17 17:34] LABS: COVID AG,FIA SOURCE NASOPHARYNGEAL
[2020-12-17 17:34] LABS: ANION GAP 8 mmol/L (8-16); CALCIUM, TOTAL 10.7 mg/dL (8.8-10.5); CARBON DIOXIDE 31 mmol/L (22-29); CHLORIDE 98 mmol/L (98-107); CREATININE 1.32 mg/dL (0.60-1.30); GLOMERULAR FILTR. RATE CALC 60 mL/min (>60); GLUCOSE,RANDOM 104 mg/dL (70-110); POTASSIUM 3.4 mmol/L (3.5-5.1); SODIUM SERUM 137 mmol/L (136-145); UREA NITROGEN, BLOOD 10 mg/dL (7-18)
[2020-12-17 17:40] LABS: ALANINE AMINOTRANSFERASE 55 U/L (12-78); ALBUMIN 4.5 g/dL (3.4-5.0); ALKALINE PHOSPHATASE 51 U/L (46-116); ASPARTATE AMINOTRANSFERASE 35 U/L (15-37); BILIRUBIN,TOTAL 0.7 mg/dL (0.1-1.0); TOTAL PROTEIN, SERUM 7.7 g/dL (6.4-8.2)
[2020-12-17] MEDS ORDERED: POTASSIUM CHLORIDE 20 MEQ ER TABLET PO ONE (19:00)
[2020-12-17] MEDS ORDERED: ONDANSETRON HCL 4 MG/2 ML VIAL IM ONE (19:30)
[2020-12-17] MEDS ORDERED: ZOLPIDEM TARTRATE 10 MG TABLET PO PRN (19:45)
[2020-12-17] MEDS ORDERED: OLANZapine 5 MG TABLET PO PRN (19:45)
[2020-12-17 21:40] VITALS: BP 141/106
[2020-12-17] MEDS: LORazepam 2 MG TABLET PO PRN (21:59)
[2020-12-17 23:11] VITALS: BP 148/89
[2020-12-17] MEDS ORDERED: CloNIDine HCL 0.1 MG TABLET PO PRN (23:15)
[2020-12-18 05:46] VITALS: BP 150/100
[2020-12-18 07:38] LABS: CHOL/HDL RATIO 2.5 (4.2-7.3)
[2020-12-18] MEDS ORDERED: LOPERAMIDE HCL 2 MG CAPSULE PO PRN (07:45)
[2020-12-18] MEDS ORDERED: ALBUTEROL SULFATE HFA 90 MCG/PUFF 8 GM INHALER IH PRN (07:45)
[2020-12-18] MEDS ORDERED: PETROLATUM,WHITE 28 GM JELLY TP PRN (07:45)
[2020-12-18] MEDS ORDERED: DOCUSATE SODIUM 100 MG CAPSULE PO PRN (07:45)
[2020-12-18] MEDS ORDERED: ONDANSETRON HCL 4 MG TABLET PO PRN (07:45)
[2020-12-18] MEDS ORDERED: MAG HYDROX/AL HYDROX/SIMETH ES 30 ML SUSPENSION UDCUP PO PRN (07:45)
[2020-12-18] MEDS ORDERED: GuaiFENesin/D-METHORPHAN [SUGAR-FREE] 200-20MG/10 ML SYRUP UDCUP PO PRN (07:45)
[2020-12-18] MEDS ORDERED: IBUPROFEN 400 MG TABLET PO PRN (07:45)
[2020-12-18] MEDS ORDERED: ACETAMINOPHEN 325 MG TABLET PO PRN (07:45)
[2020-12-18] MEDS ORDERED: MAGNESIUM HYDROXIDE SUSPENSION 30 ML UDCUP PO PRN (07:45)
[2020-12-18] MEDS ORDERED: NICOTINE 14 MG/24 HOUR PATCH TD PRN (07:45)
[2020-12-18 08:06] VITALS: BP 144/78
[2020-12-18] MEDS: BACLOFEN 10 MG TABLET PO SCH ×2 (08:52→16:45)
[2020-12-18] MEDS: METOPROLOL SUCCINATE 25 MG ER TABLET PO SCH ×2 (08:52→16:45)
[2020-12-18] MEDS: CHOLECALCIFEROL (VIT D3) 1,000 UNITS [25 MCG] TABLET PO SCH (08:53)
[2020-12-18] MEDS: AmLODIPine BESYLATE 5 MG TABLET PO SCH (08:53)
[2020-12-18] MEDS: AmLODIPine BESYLATE 10 MG TABLET PO SCH (08:53)
[2020-12-18] MEDS ORDERED: LevETIRAcetam 500 MG TABLET PO SCH (09:00)
[2020-12-18] MEDS: FAMOTIDINE 20 MG TABLET PO SCH ×2 (09:08→16:45)
[2020-12-18] MEDS: LORazepam 2 MG TABLET PO PRN ×2 (09:55→16:45)
[2020-12-18] MEDS: LevETIRAcetam 250 MG TABLET PO SCH ×2 (11:31→16:45)
[2020-12-18 16:21] VITALS: BP 138/80
[2020-12-18] MEDS: RisperiDONE 1 MG TABLET PO SCH (16:45)
[2020-12-19 04:43] VITALS: BP 138/81
[2020-12-19] MEDS: LORazepam 2 MG TABLET PO PRN ×3 (05:19→19:47)
[2020-12-19 08:10] VITALS: BP 140/84
[2020-12-19] MEDS: RisperiDONE 1 MG TABLET PO SCH ×2 (09:01→16:31)
[2020-12-19] MEDS: AmLODIPine BESYLATE 5 MG TABLET PO SCH (09:01)
[2020-12-19] MEDS: FAMOTIDINE 20 MG TABLET PO SCH ×2 (09:01→16:31)
[2020-12-19] MEDS: CHOLECALCIFEROL (VIT D3) 1,000 UNITS [25 MCG] TABLET PO SCH (09:01)
[2020-12-19] MEDS: AmLODIPine BESYLATE 10 MG TABLET PO SCH (09:01)
[2020-12-19] MEDS: METOPROLOL SUCCINATE 25 MG ER TABLET PO SCH ×2 (09:01→16:31)
[2020-12-19] MEDS: LevETIRAcetam 250 MG TABLET PO SCH ×2 (09:02→16:31)
[2020-12-19] MEDS: BACLOFEN 10 MG TABLET PO SCH ×2 (09:02→16:31)
[2020-12-19 16:07] VITALS: BP 124/80
[2020-12-20] MEDS: LORazepam 2 MG TABLET PO PRN ×2 (04:57→09:05)
[2020-12-20 06:38] VITALS: BP 118/75
[2020-12-20 08:17] VITALS: BP 115/67
[2020-12-20] MEDS: FAMOTIDINE 20 MG TABLET PO SCH (08:31)
[2020-12-20] MEDS: METOPROLOL SUCCINATE 25 MG ER TABLET PO SCH (08:31)
[2020-12-20] MEDS: LevETIRAcetam 250 MG TABLET PO SCH (08:32)
[2020-12-20] MEDS: AmLODIPine BESYLATE 5 MG TABLET PO SCH (08:32)
[2020-12-20] MEDS: BACLOFEN 10 MG TABLET PO SCH (08:32)
[2020-12-20] MEDS: CHOLECALCIFEROL (VIT D3) 1,000 UNITS [25 MCG] TABLET PO SCH (08:32)
[2020-12-20] MEDS: RisperiDONE 1 MG TABLET PO SCH (08:32)
[2020-12-20] MEDS: AmLODIPine BESYLATE 10 MG TABLET PO SCH (08:32)
[2020-12-20] MEDS ORDERED: RISP1TAB48 PO (12:52)
[2020-12-20] MEDS ORDERED: BACL10TA PO (12:53)
[2020-12-20] MEDS ORDERED: AMLO-257 PO (12:54)
== END 2020-12-20 20:25 | disposition home or self-care (01) | DRG 750 ==
LOC: EMS 16:37 → B3A 20:00 → UNDOADMIN 20:00 → B3A 12-19 09:43
PROVIDERS: ADMIT Psychiatry & Neurology Child & Adolescent Psychiatry; ATTEND Psychiatry & Neurology Child & Adolescent Psychiatry
DX: F25.0 Schizoaffective disorder, bipolar type (principal); N17.9 Acute kidney failure, unspecified; F22 Delusional disorders; G40.909 Epilepsy, unspecified, not intractable, without status epilepticus; E87.6 Hypokalemia; F10.10 Alcohol abuse, uncomplicated; I10 Essential (primary) hypertension; J45.909 Unspecified asthma, uncomplicated; F41.9 Anxiety disorder, unspecified; Z20.822 Contact with and (suspected) exposure to COVID-19
CPT/HCPCS: 80053; 80061; 85025; 87081; 87426; 99285; G0480; J2405

== ENCOUNTER 2021-01-09 16:39 | Emergency (ER) | payer MEDICAID, OTHER ==
[~2021-01-09] VITALS: Ht 180.3 cm; Wt 97.7 kg
[~2021-01-09 16:39] MED LIST changes: +AMLO-257 PO; +AMLO-258 PO; -AMOX1TAB16 PO; -CHOL200016 PO; -GABA600T10 PO; +LEVE250T55 PO; -LEVE750T10 PO; +METO-408 PO; +RISP1TAB48 PO
[2021-01-09] MEDS ORDERED: ONDANSETRON HCL 4 MG/2 ML VIAL IVP ONE (17:30)
[2021-01-09] MEDS ORDERED: SODIUM CHLORIDE 0.9% 1,000 ML IV ONE (17:30)
[2021-01-09] MEDS ORDERED: MORPHINE SULFATE 4 MG/ML SYRINGE IVP ONE (17:30)
[2021-01-09 18:06] LABS: BASOPHILS % (AUTO) 0.3 % (0.0-2.0); HEMATOCRIT 39.4 % (41-53); HEMOGLOBIN 13.4 g/dL (13.5-17.5); LYMPHOCYTES # (AUTO) 2.6 K/uL (1.0-4.8); MEAN CORPUSCULAR HEMOGLOBIN 31.4 pg (26.0-34.0); MEAN CORPUSCULAR VOLUME 92 fL (80-100); MONOCYTES # (AUTO) 0.6 K/uL (0.1-1.0); MONOCYTES % (AUTO) 6.7 % (2.0-9.0); NEUTROPHILS # (AUTO) 5.7 K/uL (1.8-7.7); PLATELET COUNT (AUTO) 302 K/uL (150-450); RED BLOOD CELL COUNT(AUTO) 4.27 MIL/uL (4.50-5.90); RED CELL DISTRIBUTION WIDTH 13.2 % (11.5-14.5)
[2021-01-09 18:16] LABS: ANION GAP 9 mmol/L (8-16); CARBON DIOXIDE 28 mmol/L (22-29); CHLORIDE 102 mmol/L (98-107); CREATININE 1.26 mg/dL (0.60-1.30); GLOMERULAR FILTR. RATE CALC > 60 mL/min (>60); GLUCOSE,RANDOM 103 mg/dL (70-110); POTASSIUM 3.4 mmol/L (3.5-5.1); SODIUM SERUM 139 mmol/L (136-145); UREA NITROGEN, BLOOD 14 mg/dL (7-18)
[2021-01-09 18:22] LABS: ALANINE AMINOTRANSFERASE 47 U/L (12-78); ALBUMIN 3.8 g/dL (3.4-5.0); ALKALINE PHOSPHATASE 61 U/L (46-116); ASPARTATE AMINOTRANSFERASE 22 U/L (15-37); BILIRUBIN,TOTAL 0.2 mg/dL (0.1-1.0); LIPASE 406 U/L (73-393); TOTAL PROTEIN, SERUM 7.1 g/dL (6.4-8.2)
[2021-01-09 18:41] VITALS: BP 126/77
[2021-01-09 18:44] LABS: APPEARANCE,URINE CLEAR (CLEAR); BILIRUBIN,URINE NEGATIVE (NEGATIVE); GLUCOSE, URINE (UA) NEGATIVE (NEGATIVE); KETONES,URINE NEGATIVE (NEGATIVE); LEUKOCYTE ESTERASE ,URINE NEGATIVE (NEGATIVE); NITRATE,URINE NEGATIVE (NEGATIVE); OCCULT BLOOD,URINE NEGATIVE (NEGATIVE); PH,URINE 7.5 (5.0-8.0); PROTEIN,URINE NEGATIVE (NEGATIVE); UROBILINOGEN,URINE 0.2 mg/dL (<=1.0)
[2021-01-09 18:48] LABS: COVID AG,FIA SOURCE NASOPHARYNGEAL
[2021-01-09] MEDS ORDERED: MAGNESIUM SULFATE 4 GM/WATER 100 ML IV PRN (19:00)
[2021-01-09] MEDS ORDERED: MAGNESIUM OXIDE 400 MG TABLET PO PRN (19:00)
[2021-01-09] MEDS ORDERED: ACETAMINOPHEN 325 MG TABLET PO PRN (19:00)
[2021-01-09] MEDS ORDERED: POTASSIUM CHL 10 MEQ/WATER 50 ML IV PRN (19:00)
[2021-01-09] MEDS ORDERED: MAGNESIUM SULFATE 2 GM/WATER 50 ML IV PRN (19:00)
[2021-01-09] MEDS ORDERED: ONDANSETRON HCL 4 MG/2 ML VIAL IVP PRN (19:00)
[2021-01-09] MEDS ORDERED: POTASSIUM CHLORIDE 20 MEQ ER TABLET PO PRN (19:00)
[2021-01-09] MEDS ORDERED: SODIUM CHLORIDE 0.9% 1,000 ML IV SCH (19:00)
[2021-01-09] MEDS ORDERED: MORPHINE SULFATE 4 MG/ML SYRINGE IVP PRN (19:00)
[2021-01-09] MEDS ORDERED: DOCUSATE SODIUM 100 MG CAPSULE PO SCH (21:00)
[2021-01-09] MEDS ORDERED: FAMOTIDINE 20 MG TABLET PO SCH (21:00)
[2021-01-09 21:28] LABS: AMPHET/METH SCREEN,URINE NEGATIVE (NEGATIVE); BARBITURATE SCREEN, URINE NEGATIVE (NEGATIVE); BENZODIAZEPINES SCREEN,URINE NEGATIVE (NEGATIVE); CANNABINOID SCREEN,URINE NEGATIVE (NEGATIVE); COCAINE SCREEN,URINE NEGATIVE (NEGATIVE); METHADONE SCREEN, URINE NEGATIVE (NEGATIVE); OPIATE SCREEN,URINE NEGATIVE (NEGATIVE)
[2021-01-09 21:29] LABS: PHENCYCLIDINE SCREEN,URINE NEGATIVE (NEGATIVE)
[2021-01-10] MEDS ORDERED: RisperiDONE 1 MG TABLET PO SCH (09:00)
[2021-01-10] MEDS ORDERED: LevETIRAcetam 250 MG TABLET PO SCH (09:00)
[2021-01-10] MEDS ORDERED: MULTIVITAMINS WITH MINERALS, THERAPEUTIC TABLET PO SCH (09:00)
== END 2021-01-09 19:50 | disposition left against medical advice (07) ==
LOC: EMS 16:39
DX: K85.90 Acute pancreatitis without necrosis or infection, unspecified (principal); K86.1 Other chronic pancreatitis; F41.9 Anxiety disorder, unspecified; J45.909 Unspecified asthma, uncomplicated; F32.9 Major depressive disorder, single episode, unspecified; F20.9 Schizophrenia, unspecified; F17.210 Nicotine dependence, cigarettes, uncomplicated; F11.90 Opioid use, unspecified, uncomplicated; F12.90 Cannabis use, unspecified, uncomplicated; Z20.822 Contact with and (suspected) exposure to COVID-19
CPT/HCPCS: 36415; 80053; 80307; 81003; 83690; 83735; 85025; 87426; 96361; 96374; 96375; 99284; J2270; J2405; J7030

== ENCOUNTER 2021-03-01 05:58 | Emergency (ER) | payer OTHER ==
[~2021-03-01] VITALS: Ht 180.3 cm; Wt 93.2 kg
[2021-03-01] MEDS ORDERED: ACETAMINOPHEN 500 MG TABLET PO ONE (06:45)
[2021-03-01 09:37] VITALS: BP 145/82
== END 2021-03-01 09:38 ==
LOC: EMS 05:59
DX: G89.29 Other chronic pain (principal); M25.512 Pain in left shoulder; F31.9 Bipolar disorder, unspecified; I10 Essential (primary) hypertension; F20.9 Schizophrenia, unspecified; F17.210 Nicotine dependence, cigarettes, uncomplicated; F12.90 Cannabis use, unspecified, uncomplicated; F11.90 Opioid use, unspecified, uncomplicated; Z79.899 Other long term (current) drug therapy
CPT/HCPCS: 71045; 93005; 99284